=== PATIENT | male | born 1975 | race Caucasian/White ===

== ENCOUNTER 2017-12-28 12:41 | Emergency (ER) | payer SELFPAY ==
[~2017-12-28] VITALS: Ht 171.4 cm; Wt 72.7 kg
[2017-12-28 12:56] VITALS: BP 124/92
[2017-12-28] MEDS ORDERED: GABA-532 PO (13:02)
[2017-12-28] MEDS ORDERED: CHLO25CA10 PO (13:02)
== END 2017-12-28 13:31 | disposition home or self-care (01) ==
LOC: ER 12:41
DX: F10.220 Alcohol dependence with intoxication, uncomplicated (principal); F17.210 Nicotine dependence, cigarettes, uncomplicated; Z79.899 Other long term (current) drug therapy
CPT/HCPCS: 99283

== ENCOUNTER 2020-07-13 16:53 | Emergency (ER) | payer MEDICAID ==
[~2020-07-13] VITALS: Ht 175.3 cm; Wt 90.0 kg
[~2020-07-13 16:53] MED LIST: CHLO25CA10 PO; GABA-532 PO
[2020-07-13 20:46] VITALS: BP 136/94
== END 2020-07-13 20:48 | disposition home or self-care (01) ==
LOC: ER 16:53
DX: F10.120 Alcohol abuse with intoxication, uncomplicated (principal); R00.0 Tachycardia, unspecified; Z79.899 Other long term (current) drug therapy
CPT/HCPCS: 99281

== ENCOUNTER 2020-07-26 03:40 | Inpatient (IN) | payer MEDICAID ==
[~2020-07-26] VITALS: Ht 170.2 cm; Wt 84.5 kg
[2020-07-26] VITALS (36 sets, daily range): BP systolic 107–157; BP diastolic 77–107
[2020-07-26] MEDS ORDERED: ALBU8.5H8 INH (04:11)
[2020-07-26] MEDS ORDERED: morphine 10mg/ml inj. IV ONE (04:15)
[2020-07-26] MEDS ORDERED: iohexol 350MG/ML 100ml bottle IV ONE (04:16)
[2020-07-26] MEDS ORDERED: iohexol 350 MG/ML 50ML vial IV ONE (04:17)
[2020-07-26 04:20] LABS: ALBUMIN 2.9 G/DL (3.4-5.0); ANION GAP 12 (8-16); BLOOD UREA NITROGEN 7 MG/DL (7-18); BUN/CREATININE RATIO 8.5 (5.4-32.0); CALCIUM 7.7 MG/DL (8.5-10.1); CHLORIDE 101 MMOL/L (99-107); CREATININE 0.82 MG/DL (0.60-1.10); GLUCOSE 155 MG/DL (70-104); POTASSIUM 3.2 MMOL/L (3.5-5.1); SODIUM 137 MMOL/L (135-145); TOTAL CARBON DIOXIDE 24.1 MMOL/L (24-32); eGFR > 90 ML/MIN
--- NOTE | 2020-07-26 04:24 | NUR ---
PTS FOOT IS PALER THAN RIGHT, AND MORESO NOW THAN WHEN HE GOT HERE, DR SARGENT AWARE.
--- NOTE | 2020-07-26 04:24 | NUR ---
PT GOING TO CT WITH NURSE.
[2020-07-26 04:30] LABS: BASOPHILS % (AUTO) 0.2 % (0-1); EOSINOPHILS % (AUTO) 0.2 % (0-6); HEMATOCRIT 44.7 % (42.0-52.0); HEMOGLOBIN 15.6 g/dl (14.0-17.9); LYMPHOCYTES # (AUTO) 4.4 X10'3 (1.1-4.8); LYMPHOCYTES % (AUTO) 47.3 % (21-51); MEAN CORPUSCULAR HEMOGLOBIN 33.1 PG (27.0-31.0); MEAN CORPUSCULAR HGB CONC 34.8 g/dL (33.0-36.5); MEAN CORPUSCULAR VOLUME 95.1 FL (78-98); MEAN PLATELET VOLUME 7.6 FL (7.4-10.4); MONOCYTES % (AUTO) 10.2 % (2-12); NEUTROPHILS # (AUTO) 3.9 X10'3 (1.8-7.7); NEUTROPHILS % (AUTO) 42.1 % (42-75); PLATELET COUNT 106 X10'3 (140-440); RED CELL DISTRIBUTION WIDTH 15.2 % (11.5-14.5); WHITE BLOOD COUNT 9.3 X10'3 (4.5-11.0)
[2020-07-26] MEDS ORDERED: heparin 10,000 units/1 ML INJ IV ONE (04:50)
[2020-07-26] MEDS ORDERED: heparin 10,000 units/1 ML INJ IV PRN ×2 (04:50→10:00)
[2020-07-26] MEDS ORDERED: heparin 25,000 UNIT/250ml bag 250 ML IV SCH (04:50)
--- NOTE | 2020-07-26 05:02 | NUR ---
was at BS to explain to him his diagnosis. Pt was educated on heparin. Heparin started.
[2020-07-26] MEDS ORDERED: fentaNYL/PF 50MCG/1 ML 2ML syringe IV ONE (05:05)
--- NOTE | 2020-07-26 05:08 | NUR ---
SURGERY JUST CALLED, T.O. ECHO STAT.
--- NOTE | 2020-07-26 05:35 | NUR ---
clipped hairs, ultrasound at BS
[2020-07-26] MEDS ORDERED: acetaminophen 325mg tablet PO PRN ×2 (05:45)
[2020-07-26] MEDS ORDERED: thiamine 100mg/ml 2ml inj. IV ONE (05:45)
[2020-07-26] MEDS ORDERED: acetaminophen 650mg rectal suppository RC PRN (05:45)
[2020-07-26] MEDS ORDERED: dextrose 50%-water 50ml dispensing syringe IV PRN (05:45)
[2020-07-26] MEDS ORDERED: ipratropium/albuterol 3ml nebule NEB PRN (05:45)
[2020-07-26] MEDS ORDERED: potassium Cl 40MEQ/1/2NS 520ml 520 ML IV PRN ×2 (05:45)
[2020-07-26] MEDS ORDERED: morphine 2 MG/ML inj. syringe IV PRN ×2 (05:45→12:40)
[2020-07-26] MEDS ORDERED: potassium Cl 20 mEq SR tablet PO PRN (05:45)
[2020-07-26] MEDS ORDERED: ondansetron/PF 4mg/2ml inj IV PRN ×2 (05:45→12:40)
[2020-07-26] MEDS ORDERED: heparin 1,000 UNITS/NS 500ml 500 ML ONE (06:04)
[2020-07-26] MEDS ORDERED: LIDOcaine 1%/PF 5ML 10 MG/ML VIAL ONE (06:04)
[2020-07-26] MEDS ORDERED: fentaNYL/PF 50MCG/1 ML 2ML syringe ONE ×2 (06:04→06:24)
[2020-07-26] MEDS ORDERED: iohexol 300mg/ml 100ml inj. ONE (06:04)
[2020-07-26] MEDS ORDERED: midazolam 2 mg/2 ml injection ONE ×4 (06:04→12:20)
[2020-07-26] MEDS: heparin 1,000 UNITS/NS 500ml 500 ML IV SCH ×4 (06:10→18:40)
[2020-07-26 06:23] LABS: ALANINE AMINOTRANSFERASE 83 U/L (12-78); ALBUMIN/GLOBULIN RATIO 0.7 (1.1-1.5); ALKALINE PHOSPHATASE 143 IU/L (46-116); AMYLASE 140 U/L (25-115); ASPARTATE AMINO TRANSFERASE 130 U/L (10-37); BILIRUBIN,DIRECT 0.2 MG/DL (0-0.3); BILIRUBIN,TOTAL 0.5 MG/DL (0.1-1.0); LIPASE 149 U/L (73-393); MAGNESIUM 1.8 MG/DL (1.5-2.4); PHOSPHORUS 3.6 MG/DL (2.3-4.5); TOTAL PROTEIN 6.8 G/DL (6.4-8.2)
[2020-07-26] MEDS: K, MAG and/or Phos replacement - Verify level? MC SCH (08:00)
[2020-07-26] MEDS: folic acid 1mg tablet PO SCH (08:00)
[2020-07-26] MEDS: pantoprazole 40 MG vial IV SCH (08:00)
[2020-07-26] MEDS: multivitamins, therapeutics tablet PO SCH (08:00)
[2020-07-26] MEDS: docusate sod 100mg capsule PO SCH ×2 (08:00→20:00)
[2020-07-26] MEDS: thiamine 100mg tablet PO SCH (08:00)
[2020-07-26] MEDS: morphine 4 MG/ML inj SYRINge IV PRN ×2 (08:29→17:02)
[2020-07-26] MEDS: tPA-cathflo 2mg/2ml IV flush 4 MG in normal saline 100ml IV soln 100 ML ICATH SCH ×3 (08:30→21:54)
[2020-07-26] MEDS: normal saline 1000ml 1,000 ML IV SCH ×2 (08:30→15:35)
[2020-07-26] MEDS: LORazepam 2 mg/ml vial IV PRN ×5 (09:49→23:09)
[2020-07-26] MEDS: heparin 25,000 UNIT/250ml bag 250 ML IV SCH (10:00)
[2020-07-26] MEDS ORDERED: heparin 10,000 units/1 ML INJ ONE (11:47)
[2020-07-26] MEDS ORDERED: iohexol 300 MG/1 ML 50ml polymer ONE (11:47)
[2020-07-26] MEDS ORDERED: sevoflurane 250ml liquid IH ONE (12:20)
[2020-07-26] MEDS ORDERED: cefazolin/dext.iso 2,000MG/50 ML BAG IV ONE (12:20)
[2020-07-26] MEDS ORDERED: fentaNYL /PF 50mcg/ml 5ml ampule ONE (12:21)
[2020-07-26 12:22] LABS: HEMATOCRIT 44.8 % (42.0-52.0); HEMOGLOBIN 15.5 g/dl (14.0-17.9); MEAN CORPUSCULAR HGB CONC 34.7 g/dL (33.0-36.5); MEAN CORPUSCULAR VOLUME 95.2 FL (78-98); MEAN PLATELET VOLUME 7.5 FL (7.4-10.4); PLATELET COUNT 82 X10'3 (140-440); RED BLOOD COUNT 4.71 X10'6 (4.70-6.10); RED CELL DISTRIBUTION WIDTH 15.3 % (11.5-14.5); WHITE BLOOD COUNT 8.5 X10'3 (4.5-11.0)
--- NOTE | 2020-07-26 12:27 | NUR ---
Patient arrived on unit at approximately 0800 from IR. Patient came in with complaints of left lower leg pain with numbness. No blood flow from approximately knee down. TPA and Heparin infusing. Extremity cold and cyanotic. No pulse detectable with doppler. Medicated with 4mg Morphine for complaint of pain. 2mg Ativan given for visible tremors. Patient taken to OR at approximately 1215 for left leg thrombectomy/faciotomy/angio. Will continue to monitor once back on unit.
[2020-07-26] MEDS ORDERED: meperidine/PF 25mg/ml syringe IV PRN ×3 (12:40)
[2020-07-26] MEDS ORDERED: morphine 4 MG/ML inj SYRINge IV PRN (12:40)
[2020-07-26] MEDS ORDERED: ringers solution, lacted 1,000 ML IV SCH (12:40)
[2020-07-26] MEDS ORDERED: proCHLORperazine 10 MG/2 ml inj IV PRN (12:40)
[2020-07-26] MEDS ORDERED: glycopyrrolate 0.2mg/ml inj ONE (14:23)
[2020-07-26] MEDS ORDERED: LIDOcaine 2% (20mg/ml) 5ml vial ONE (14:23)
[2020-07-26] MEDS ORDERED: rocuronium 10mg/ml inj IV ONE (14:23)
[2020-07-26] MEDS ORDERED: ondansetron/PF 4mg/2ml inj ONE (14:23)
[2020-07-26] MEDS ORDERED: meperidine/PF 25mg/ml syringe ONE (14:23)
[2020-07-26] MEDS ORDERED: propofol inj 20 ML IV ONE (14:23)
[2020-07-26] MEDS ORDERED: dexamethasone sod phosphate 4mg/ml inj. ONE (14:23)
[2020-07-26] MEDS ORDERED: neostigmine methylsulfate 1 MG/ML 10ml vial ONE (14:23)
[2020-07-26] MEDS: ceFAZolin/D5W- 1GM premix 50 ML IV SCH ×2 (15:35→23:17)
--- NOTE | 2020-07-26 15:59 | NUR ---
Patient returned from OR at approximately 1500. Wound vac in place to left groin at 75mmHg. Right sheath in place to right groin. IR to come remove. Left lower extremity dressing intact. Pulses to left lower extremity positive via doppler. Will continue to monitor.
[2020-07-26] MEDS: aspirin 81mg tablet.DR PO SCH (18:00)
[2020-07-26] MEDS: potassium Cl 20 mEq SR tablet PO PRN ×2 (19:15→23:17)
[2020-07-26 19:24] LABS: HEMATOCRIT 41.1 % (42.0-52.0); HEMOGLOBIN 14.1 g/dl (14.0-17.9); MEAN CORPUSCULAR HEMOGLOBIN 32.8 PG (27.0-31.0); MEAN CORPUSCULAR HGB CONC 34.3 g/dL (33.0-36.5); MEAN CORPUSCULAR VOLUME 95.7 FL (78-98); MEAN PLATELET VOLUME 7.9 FL (7.4-10.4); PLATELET COUNT 78 X10'3 (140-440); RED CELL DISTRIBUTION WIDTH 15.2 % (11.5-14.5); WHITE BLOOD COUNT 12.3 X10'3 (4.5-11.0)
[2020-07-26] MEDS: HYDROcodone/acetaminophen 10/325mg tab PO PRN (19:46)
--- NOTE | 2020-07-26 21:48 | NUR ---
Pt medicated w/ 2mg ativan for alcohol withdrawal symptoms, tremors noted, diaphoretic, and pt states he feels like he is withdrawaling. At beggining of assessment pt R groin site was CDI, pt was moving in bed, reminded pt of immobilization education. Assessed groin site, site was saturated and oozing blood. Fem stop applied, pulses remained palpable. Continuous assessment of groin site and CMS. Will continue to monitor.
[2020-07-27] VITALS (24 sets, daily range): BP systolic 102–125; BP diastolic 56–91
[2020-07-27] MEDS: LORazepam 2 mg/ml vial IV PRN ×4 (02:10→23:35)
[2020-07-27] MEDS: morphine 4 MG/ML inj SYRINge IV PRN (03:25)
[2020-07-27 03:34] LABS: BASOPHILS % (AUTO) 0.1 % (0-1); EOSINOPHILS % (AUTO) 0 % (0-6); HEMATOCRIT 38.8 % (42.0-52.0); HEMOGLOBIN 13.3 g/dl (14.0-17.9); LYMPHOCYTES # (AUTO) 0.8 X10'3 (1.1-4.8); MEAN CORPUSCULAR HEMOGLOBIN 33.1 PG (27.0-31.0); MEAN CORPUSCULAR HGB CONC 34.2 g/dL (33.0-36.5); MEAN CORPUSCULAR VOLUME 96.5 FL (78-98); MEAN PLATELET VOLUME 8.5 FL (7.4-10.4); MONOCYTES # (AUTO) 0.8 X10'3 (0-0.9); MONOCYTES % (AUTO) 8.5 % (2-12); NEUTROPHILS # (AUTO) 8.2 X10'3 (1.8-7.7); NEUTROPHILS % (AUTO) 83.4 % (42-75); PARTIAL THROMBOPLASTIN TIME 26 SECONDS (22-32); PLATELET COUNT 85 X10'3 (140-440); RED BLOOD COUNT 4.02 X10'6 (4.70-6.10); RED CELL DISTRIBUTION WIDTH 15.3 % (11.5-14.5); WHITE BLOOD COUNT 9.8 X10'3 (4.5-11.0)
[2020-07-27 03:48] LABS: ALANINE AMINOTRANSFERASE 176 U/L (12-78); ALBUMIN 2.2 G/DL (3.4-5.0); ALBUMIN/GLOBULIN RATIO 0.7 (1.1-1.5); ALKALINE PHOSPHATASE 115 IU/L (46-116); AMYLASE 63 U/L (25-115); ANION GAP 13 (8-16); BILIRUBIN,TOTAL 0.8 MG/DL (0.1-1.0); BLOOD UREA NITROGEN 8 MG/DL (7-18); BUN/CREATININE RATIO 9.5 (5.4-32.0); CALCIUM 6.4 MG/DL (8.5-10.1); CHLORIDE 103 MMOL/L (99-107); CREATININE 0.84 MG/DL (0.60-1.10); GLUCOSE 164 MG/DL (70-104); MAGNESIUM 1.7 MG/DL (1.5-2.4); PHOSPHORUS 3.6 MG/DL (2.3-4.5); POTASSIUM 4.2 MMOL/L (3.5-5.1); SODIUM 138 MMOL/L (135-145); TOTAL CARBON DIOXIDE 22.3 MMOL/L (24-32); TOTAL PROTEIN 5.3 G/DL (6.4-8.2); eGFR > 90 ML/MIN
[2020-07-27 03:52] LABS: ASPARTATE AMINO TRANSFERASE 1346 U/L (10-37)
[2020-07-27] MEDS: heparin 25,000 UNIT/250ml bag 250 ML IV SCH ×2 (05:14→19:49)
[2020-07-27] MEDS: tPA-cathflo 2mg/2ml IV flush 4 MG in normal saline 100ml IV soln 100 ML ICATH SCH (06:05)
[2020-07-27] MEDS: pantoprazole 40 MG vial IV SCH (07:51)
[2020-07-27] MEDS: normal saline 1000ml 1,000 ML IV SCH ×2 (07:52→19:50)
[2020-07-27] MEDS: folic acid 1mg tablet PO SCH (07:52)
[2020-07-27] MEDS: multivitamins, therapeutics tablet PO SCH (07:52)
[2020-07-27] MEDS: docusate sod 100mg capsule PO SCH ×2 (07:52→19:49)
[2020-07-27] MEDS: thiamine 100mg tablet PO SCH (07:52)
[2020-07-27] MEDS: aspirin 81mg tablet.DR PO SCH (07:52)
[2020-07-27] MEDS: K, MAG and/or Phos replacement - Verify level? MC SCH (07:53)
[2020-07-27] MEDS: nicotine 21mg patch - 24 hr TD SCH (10:52)
[2020-07-27 19:49] LABS: HEMATOCRIT 35.1 % (42.0-52.0); HEMOGLOBIN 12.2 g/dl (14.0-17.9); MEAN CORPUSCULAR HEMOGLOBIN 33.2 PG (27.0-31.0); MEAN CORPUSCULAR HGB CONC 34.7 g/dL (33.0-36.5); MEAN CORPUSCULAR VOLUME 95.7 FL (78-98); MEAN PLATELET VOLUME 9.3 FL (7.4-10.4); PLATELET COUNT 81 X10'3 (140-440); RED BLOOD COUNT 3.67 X10'6 (4.70-6.10); RED CELL DISTRIBUTION WIDTH 14.9 % (11.5-14.5); WHITE BLOOD COUNT 9.7 X10'3 (4.5-11.0)
[2020-07-27] MEDS: HYDROcodone/acetaminophen 10/325mg tab PO PRN (19:58)
[2020-07-28] VITALS (21 sets, daily range): BP systolic 102–131; BP diastolic 70–96
[2020-07-28] MEDS: morphine 4 MG/ML inj SYRINge IV PRN (04:01)
[2020-07-28] MEDS ORDERED: LORazepam 2 mg/ml vial IV PRN (05:45)
[2020-07-28] MEDS ORDERED: lactulose 20gm/30ml cup PO PRN (05:45)
[2020-07-28 06:04] LABS: BASOPHILS % (AUTO) 0.2 % (0-1); EOSINOPHILS % (AUTO) 0 % (0-6); HEMATOCRIT 32.7 % (42.0-52.0); HEMOGLOBIN 11.4 g/dl (14.0-17.9); LYMPHOCYTES # (AUTO) 1.7 X10'3 (1.1-4.8); LYMPHOCYTES % (AUTO) 18.6 % (21-51); MEAN CORPUSCULAR HEMOGLOBIN 33.4 PG (27.0-31.0); MEAN CORPUSCULAR HGB CONC 34.9 g/dL (33.0-36.5); MEAN CORPUSCULAR VOLUME 95.9 FL (78-98); MEAN PLATELET VOLUME 9.6 FL (7.4-10.4); MONOCYTES # (AUTO) 0.9 X10'3 (0-0.9); MONOCYTES % (AUTO) 9.4 % (2-12); NEUTROPHILS # (AUTO) 6.7 X10'3 (1.8-7.7); NEUTROPHILS % (AUTO) 71.8 % (42-75); PLATELET COUNT 90 X10'3 (140-440); RED BLOOD COUNT 3.41 X10'6 (4.70-6.10); RED CELL DISTRIBUTION WIDTH 14.9 % (11.5-14.5); WHITE BLOOD COUNT 9.3 X10'3 (4.5-11.0)
[2020-07-28 06:18] LABS: PARTIAL THROMBOPLASTIN TIME 22 SECONDS (22-32)
[2020-07-28 06:19] LABS: ALANINE AMINOTRANSFERASE 181 U/L (12-78); ALBUMIN 2.1 G/DL (3.4-5.0); ALBUMIN/GLOBULIN RATIO 0.6 (1.1-1.5); ALKALINE PHOSPHATASE 108 IU/L (46-116); AMYLASE 55 U/L (25-115); ANION GAP 7 (8-16); ASPARTATE AMINO TRANSFERASE 986 U/L (10-37); BILIRUBIN,TOTAL 0.8 MG/DL (0.1-1.0); BLOOD UREA NITROGEN 13 MG/DL (7-18); BUN/CREATININE RATIO 16.9 (5.4-32.0); CALCIUM 7.5 MG/DL (8.5-10.1); CHLORIDE 104 MMOL/L (99-107); CREATININE 0.77 MG/DL (0.60-1.10); GLUCOSE 113 MG/DL (70-104); MAGNESIUM 2.1 MG/DL (1.5-2.4); POTASSIUM 3.8 MMOL/L (3.5-5.1); SODIUM 138 MMOL/L (135-145); TOTAL CARBON DIOXIDE 27.2 MMOL/L (24-32); TOTAL PROTEIN 5.4 G/DL (6.4-8.2); eGFR > 90 ML/MIN
[2020-07-28 06:28] LABS: PHOSPHORUS 1.2 MG/DL (2.3-4.5)
[2020-07-28] MEDS: docusate sod 100mg capsule PO SCH ×2 (07:29→20:23)
[2020-07-28] MEDS: multivitamins, therapeutics tablet PO SCH (07:30)
[2020-07-28] MEDS: pantoprazole 40mg Tablet.DR PO SCH (07:30)
[2020-07-28] MEDS: aspirin 81mg tablet.DR PO SCH (07:30)
[2020-07-28] MEDS: thiamine 100mg tablet PO SCH (07:30)
[2020-07-28] MEDS: folic acid 1mg tablet PO SCH (07:30)
[2020-07-28] MEDS: nicotine 21mg patch - 24 hr TD SCH (07:31)
[2020-07-28] MEDS: K, MAG and/or Phos replacement - Verify level? MC SCH (08:00)
[2020-07-28] MEDS ORDERED: sodium phosphate inj. 15 MMOL in dextrose 5%-water 250 ML IV ONE (09:35)
--- NOTE | 2020-07-28 10:48 | NUR ---
Pt s/p embolectomy and 4 compartment fasciotomy L calf per EMR. Pt seen by CRISTINA for verbal high protein ed; pt is agreeable to lazaro OLSEN; notified. Addendum: 07/28/20 at [address] Amended: Links added.
[2020-07-28] MEDS: normal saline 1000ml 1,000 ML IV SCH (11:05)
[2020-07-28 12:45] LABS: HEMATOCRIT 32.3 % (42.0-52.0); HEMOGLOBIN 11.1 g/dl (14.0-17.9); MEAN CORPUSCULAR HEMOGLOBIN 33.4 PG (27.0-31.0); MEAN CORPUSCULAR HGB CONC 34.2 g/dL (33.0-36.5); MEAN CORPUSCULAR VOLUME 97.6 FL (78-98); MEAN PLATELET VOLUME 9.9 FL (7.4-10.4); PLATELET COUNT 89 X10'3 (140-440); RED BLOOD COUNT 3.31 X10'6 (4.70-6.10); RED CELL DISTRIBUTION WIDTH 14.8 % (11.5-14.5); WHITE BLOOD COUNT 9.8 X10'3 (4.5-11.0)
[2020-07-28] MEDS: LORazepam 1 MG tablet PO PRN ×4 (14:23→22:54)
[2020-07-28] MEDS ORDERED: JUVEN Smoothie Arginine/Glut./Ca2+Bmb (Juven 19.3pkt) 240ml cup PO SCH (17:30)
[2020-07-28 18:31] LABS: HEMATOCRIT 31.6 % (42.0-52.0); HEMOGLOBIN 11.2 g/dl (14.0-17.9); MEAN CORPUSCULAR HEMOGLOBIN 34.2 PG (27.0-31.0); MEAN CORPUSCULAR HGB CONC 35.5 g/dL (33.0-36.5); MEAN CORPUSCULAR VOLUME 96.2 FL (78-98); MEAN PLATELET VOLUME 9.8 FL (7.4-10.4); PLATELET COUNT 105 X10'3 (140-440); RED BLOOD COUNT 3.29 X10'6 (4.70-6.10); RED CELL DISTRIBUTION WIDTH 14.3 % (11.5-14.5); WHITE BLOOD COUNT 10.6 X10'3 (4.5-11.0)
[2020-07-28] MEDS: HYDROcodone/acetaminophen 10/325mg tab PO PRN (20:23)
--- NOTE | 2020-07-28 20:40 | NUR ---
Received report from CICU WILSON Luu. Pt. to follow shortly.
--- NOTE | 2020-07-28 20:52 | NUR ---
Report given and rec. by Estefany RACHEL nurse on PCU rm . Phos level low per AM nurse and MD aware. Not to treat secondary to patient beginning to eat and phos level should rebound to appropriate level. patient yu removed per order and patient ambulated to bed per two person assist. VVS..patient alert and oriented x4.
--- NOTE | 2020-07-28 20:52 | NUR ---
Patient arrived to floor at 2051. SbA to bed. 2 RN skin check completed with Jus Nair RN and following noted: bruising to right groin femoral insertion site. Dressing covering left calf. At this time unsure as to what is underneath. Jus RACHEL in agreement. and RN also will f/u with note about not replacing phosphorous today. Addendum: 07/29/20 at 0224 by Estefany Radford RN Actually correct time was 2099.
[2020-07-29] MEDS: normal saline 1000ml 1,000 ML IV SCH ×2 (00:25→13:57)
[2020-07-29] MEDS: LORazepam 1 MG tablet PO PRN ×5 (01:58→23:36)
[2020-07-29] MEDS: HYDROcodone/acetaminophen 10/325mg tab PO PRN ×5 (01:59→21:02)
[2020-07-29 02:05] VITALS: BP 115/75
[2020-07-29 06:18] LABS: BASOPHILS % (AUTO) 0.2 % (0-1); EOSINOPHILS % (AUTO) 0.4 % (0-6); HEMATOCRIT 25.9 % (42.0-52.0); LYMPHOCYTES % (AUTO) 28.2 % (21-51); MEAN CORPUSCULAR HEMOGLOBIN 33.7 PG (27.0-31.0); MEAN CORPUSCULAR HGB CONC 34.7 g/dL (33.0-36.5); MEAN PLATELET VOLUME 9.4 FL (7.4-10.4); MONOCYTES # (AUTO) 0.5 X10'3 (0-0.9); MONOCYTES % (AUTO) 7.5 % (2-12); NEUTROPHILS # (AUTO) 4.4 X10'3 (1.8-7.7); NEUTROPHILS % (AUTO) 63.7 % (42-75); PLATELET COUNT 91 X10'3 (140-440); RED BLOOD COUNT 2.67 X10'6 (4.70-6.10); RED CELL DISTRIBUTION WIDTH 14.1 % (11.5-14.5)
[2020-07-29 06:26] LABS: PARTIAL THROMBOPLASTIN TIME 22 SECONDS (22-32)
--- NOTE | 2020-07-29 06:30 | NUR ---
Problems reprioritized. Patient report given, questions answered & plan of care reviewed with So RACHEL.
[2020-07-29 06:32] LABS: ALANINE AMINOTRANSFERASE 194 U/L (12-78); ALBUMIN/GLOBULIN RATIO 0.6 (1.1-1.5); ALKALINE PHOSPHATASE 108 IU/L (46-116); AMYLASE 61 U/L (25-115); ANION GAP 4 (8-16); ASPARTATE AMINO TRANSFERASE 747 U/L (10-37); BILIRUBIN,TOTAL 0.8 MG/DL (0.1-1.0); BLOOD UREA NITROGEN 11 MG/DL (7-18); BUN/CREATININE RATIO 16.4 (5.4-32.0); CALCIUM 7.5 MG/DL (8.5-10.1); CHLORIDE 102 MMOL/L (99-107); CREATININE 0.67 MG/DL (0.60-1.10); GLUCOSE 89 MG/DL (70-104); MAGNESIUM 2.1 MG/DL (1.5-2.4); POTASSIUM 3.4 MMOL/L (3.5-5.1); SODIUM 134 MMOL/L (135-145); TOTAL CARBON DIOXIDE 28.3 MMOL/L (24-32); TOTAL PROTEIN 5.1 G/DL (6.4-8.2); eGFR > 90 ML/MIN
[2020-07-29 07:40] VITALS: BP 132/74
[2020-07-29] MEDS: folic acid 1mg tablet PO SCH (07:51)
[2020-07-29] MEDS: pantoprazole 40mg Tablet.DR PO SCH (07:51)
[2020-07-29] MEDS: docusate sod 100mg capsule PO SCH ×2 (07:51→19:15)
[2020-07-29] MEDS: thiamine 100mg tablet PO SCH (07:51)
[2020-07-29] MEDS: aspirin 81mg tablet.DR PO SCH (07:51)
[2020-07-29] MEDS: multivitamins, therapeutics tablet PO SCH (07:51)
[2020-07-29] MEDS: K, MAG and/or Phos replacement - Verify level? MC SCH (07:52)
[2020-07-29] MEDS: nicotine 21mg patch - 24 hr TD SCH (07:52)
[2020-07-29] MEDS: potassium Cl 20 mEq SR tablet PO PRN ×3 (07:57→21:01)
--- NOTE | 2020-07-29 08:22 | NUR ---
Patient pulled out one of his IV's. He stated that he will be leaving today no matter what. I discussed the importance of staying for his treatment and explained the need for the wound vac therapy. He said that he didn't care. Was able to convince him to stay until the DR rounds and is able to talk with him. medicated his 01/24 pain.
--- NOTE | 2020-07-29 12:10 | NUR ---
Rounded with Dr. Chun. He said to get a wound vac placed on the left lower leg as well so that the patient will be able to DC with the wound vacs. Notified knife setter of this plan.
[2020-07-29 12:14] VITALS: BP 122/73
[2020-07-29 16:09] VITALS: BP 137/83
[2020-07-29 18:00] VITALS: BP 118/61
--- NOTE | 2020-07-29 18:27 | NUR ---
Problems reprioritized. Patient report given, questions answered & plan of care reviewed with WILSON Hodges.
--- NOTE | 2020-07-29 19:04 | NUR ---
I have received report from Xiao RACHEL and had the opportunity to ask questions and assume patient care.
[2020-07-29] MEDS: apixaban 5mg tablet PO SCH (19:16)
[2020-07-29 22:00] VITALS: BP 135/85
[2020-07-30] MEDS: HYDROcodone/acetaminophen 10/325mg tab PO PRN ×5 (01:09→16:55)
[2020-07-30 01:29] VITALS: BP 135/85
[2020-07-30 02:00] VITALS: BP_SYST 128; BP_SYST 137; BP_DIAS 77; BP_DIAS 82
[2020-07-30] MEDS: LORazepam 1 MG tablet PO PRN (02:28)
[2020-07-30] MEDS: normal saline 1000ml 1,000 ML IV SCH (02:28)
[2020-07-30] MEDS ORDERED: LORazepam 1 MG tablet PO PRN (05:45)
[2020-07-30] MEDS ORDERED: LORazepam 2 mg/ml vial IV PRN (05:45)
[2020-07-30 06:00] VITALS: BP 118/71
--- NOTE | 2020-07-30 06:27 | NUR ---
Problems reprioritized. Patient report given, questions answered & plan of care reviewed with Jeri RACHEL.
--- NOTE | 2020-07-30 06:32 | NUR ---
Patient in room PCU 3024. I have received report from WILSON Hodges and had the opportunity to ask questions and assume patient care.
[2020-07-30 06:52] LABS: BASOPHILS % (AUTO) 0.5 % (0-1); EOSINOPHILS % (AUTO) 0.5 % (0-6); HEMATOCRIT 25.7 % (42.0-52.0); LYMPHOCYTES % (AUTO) 27.5 % (21-51); MEAN CORPUSCULAR HEMOGLOBIN 34.6 PG (27.0-31.0); MEAN CORPUSCULAR HGB CONC 35.1 g/dL (33.0-36.5); MEAN CORPUSCULAR VOLUME 98.5 FL (78-98); MONOCYTES # (AUTO) 0.7 X10'3 (0-0.9); MONOCYTES % (AUTO) 9.4 % (2-12); NEUTROPHILS # (AUTO) 4.4 X10'3 (1.8-7.7); NEUTROPHILS % (AUTO) 62.1 % (42-75); PLATELET COUNT 139 X10'3 (140-440); RED BLOOD COUNT 2.61 X10'6 (4.70-6.10); RED CELL DISTRIBUTION WIDTH 14.4 % (11.5-14.5); WHITE BLOOD COUNT 7.1 X10'3 (4.5-11.0)
[2020-07-30 07:03] LABS: PARTIAL THROMBOPLASTIN TIME 23 SECONDS (22-32)
[2020-07-30 07:04] LABS: ALANINE AMINOTRANSFERASE 233 U/L (12-78); ALBUMIN 2.3 G/DL (3.4-5.0); ALBUMIN/GLOBULIN RATIO 0.7 (1.1-1.5); ALKALINE PHOSPHATASE 113 IU/L (46-116); ANION GAP 7 (8-16); ASPARTATE AMINO TRANSFERASE 823 U/L (10-37); BILIRUBIN,TOTAL 0.8 MG/DL (0.1-1.0); BLOOD UREA NITROGEN 10 MG/DL (7-18); BUN/CREATININE RATIO 14.9 (5.4-32.0); CALCIUM 7.6 MG/DL (8.5-10.1); CHLORIDE 103 MMOL/L (99-107); CREATININE 0.67 MG/DL (0.60-1.10); GLUCOSE 97 MG/DL (70-104); MAGNESIUM 2.1 MG/DL (1.5-2.4); PHOSPHORUS 2.8 MG/DL (2.3-4.5); POTASSIUM 3.8 MMOL/L (3.5-5.1); SODIUM 137 MMOL/L (135-145); TOTAL PROTEIN 5.7 G/DL (6.4-8.2); eGFR > 90 ML/MIN
[2020-07-30] MEDS: docusate sod 100mg capsule PO SCH (08:00)
[2020-07-30] MEDS: K, MAG and/or Phos replacement - Verify level? MC SCH (08:00)
[2020-07-30] MEDS: nicotine 21mg patch - 24 hr TD SCH (08:17)
[2020-07-30] MEDS: multivitamins, therapeutics tablet PO SCH (08:17)
[2020-07-30] MEDS: thiamine 100mg tablet PO SCH (08:17)
[2020-07-30] MEDS: folic acid 1mg tablet PO SCH (08:17)
[2020-07-30] MEDS: pantoprazole 40mg Tablet.DR PO SCH (08:17)
[2020-07-30] MEDS: aspirin 81mg tablet.DR PO SCH (08:17)
[2020-07-30] MEDS: apixaban 5mg tablet PO SCH (08:17)
--- NOTE | 2020-07-30 10:17 | NUR ---
Eating well, 75-100 improved from 0% PO Intake. Pt is s/p left common femoral embolectomy, left common femoral endarterectomy with angioplasty, and left lower leg fasciotomy on 07/26; surgical wound present to left groin and left lateral lower leg with wound vac, WOC following. Pt has been seen by CRISTINA for verbal and written high protein education for wound healing. Pt agreed to Nhan with meals, pending approval by MD. Recommend: 1. Continue regular diet 2. Esbon nhan smoothie BIDBD 3. Routine bowel care 4. Weight per rx Addendum: 07/30/20 at [address] Amended: Links added.
[2020-07-30 11:00] VITALS: BP 124/73
[2020-07-30] MEDS ORDERED: JUVEN Smoothie Arginine/Glut./Ca2+Bmb (Juven 19.3pkt) 240ml cup PO SCH (12:30)
[2020-07-30] MEDS ORDERED: PANT40TA54 PO (14:09)
[2020-07-30] MEDS ORDERED: NICO-687 TD (14:09)
[2020-07-30] MEDS ORDERED: APIX5TAB3 PO (14:09)
[2020-07-30] MEDS ORDERED: ASPI-1071 PO (14:09)
[2020-07-30] MEDS ORDERED: HYDR-3972 PO (14:33)
[2020-07-30 15:00] VITALS: BP 103/62
--- NOTE | 2020-07-30 17:46 | NUR ---
Pt discharged to home at 1740, with all belongings, in private vehicle, accompanied by girlfriend. Discharge instructions and medications reviewed. Education provided regarding home wound vac care and changing of cannisters. Pt sent home with extra cannisters and wound vac dressing supplies. Pt discharged with triplicate for pain medication with instructions to fill at pharmacy of choice, and terry lloyd with instructions to present to pharmacy. Appointment made at wound care clinic for Tuesday08/01/20 at 0920, phone number provided. Pt instructed that he is responsible for making appointments after his first one on 08/01. Pt stated understanding and willingness to comply with all discharge instructions. IV DC'd, cannula intact. Pt escorted to front lobby via wheelchair by PCT.
[2020-08-06] MEDS ORDERED: apixaban 5mg tablet PO SCH (08:00)
== END 2020-07-30 17:40 | disposition home or self-care (01) | DRG 181 ==
LOC: ER 03:40 → ED HOLD 05:45 → CICU 2S 07:18 → PCU 3S 07-28 20:42
PROVIDERS: ADMIT Internal Medicine Critical Care Medicine; ATTEND Internal Medicine Critical Care Medicine
PROC: 04UL0JZ Supplement Left Femoral Artery with Synthetic Substitute, Open Approach (ICD-10-PCS; 2020-07-26)
PROC: 0KNT0ZZ Release Left Lower Leg Muscle, Open Approach (ICD-10-PCS; 2020-07-26)
PROC: 0KNT0ZZ Release Left Lower Leg Muscle, Open Approach (ICD-10-PCS; 2020-07-26)
PROC: 0KNT0ZZ Release Left Lower Leg Muscle, Open Approach (ICD-10-PCS; 2020-07-26)
PROC: 0KNT0ZZ Release Left Lower Leg Muscle, Open Approach (ICD-10-PCS; 2020-07-26)
PROC: 04CL0ZZ Extirpation of Matter from Left Femoral Artery, Open Approach (ICD-10-PCS; 2020-07-26)
PROC: 04CN0ZZ Extirpation of Matter from Left Popliteal Artery, Open Approach (ICD-10-PCS; principal; 2020-07-26 12:20)
DX: I82.412 Acute embolism and thrombosis of left femoral vein (principal); I82.432 Acute embolism and thrombosis of left popliteal vein; I99.8 Other disorder of circulatory system; J45.909 Unspecified asthma, uncomplicated; F17.200 Nicotine dependence, unspecified, uncomplicated; Z20.822 Contact with and (suspected) exposure to COVID-19; F12.90 Cannabis use, unspecified, uncomplicated; Z79.82 Long term (current) use of aspirin; Z79.899 Other long term (current) drug therapy; Z79.01 Long term (current) use of anticoagulants
CPT/HCPCS: 36246; 36415; 37211; 75635; 75710; 76937; 80048; 80053; 80076; 82150; 82948; 83690; 83735; 84100; 85025; 85027; 85347; 85384; 85610; 85730; 86885; 86900; 86901; 87635; 93005; 93306; 93308; 94760; 96374; 96375; 97116; 97161; 97530; 99152; 99153; 99285; A4618; A6258; A6446; A7000; C1729; C1751; C1757; C1758; C1768; C1769; C1894; C9113; C9803; G0378; J0690; J1100; J1644; J2001; J2060; J2175; J2250; J2270; J2405; J2704; J2710; J2997; J3010; J3490; J7030; J7040; J7060; J7120; Q9967

== ENCOUNTER 2020-07-31 23:58 | Emergency (ER) | payer MEDICAID ==
[~2020-07-31] VITALS: Ht 170.2 cm; Wt 77.3 kg
[~2020-07-31 23:58] MED LIST changes: +ALBU8.5H8 INH; +APIX5TAB3 PO; +ASPI-1071 PO; -CHLO25CA10 PO; -GABA-532 PO; +HYDR-3972 PO; +NICO-687 TD; +PANT40TA54 PO
[2020-08-01 01:08] VITALS: BP 135/87
--- NOTE | 2020-08-01 01:30 | NUR ---
Kiah daigle from surgical placed two hospital wound vacs on pt. Pt's wound vac full from home, no home canister refills in house. Diet ordered, pt has wound appointment at 930.
--- NOTE | 2020-08-01 07:59 | NUR ---
patient in the room sitting at the edge of the bed.No reported discomfort.We will monitor.
--- NOTE | 2020-08-01 08:17 | NUR ---
PT GIVEN BREAKFAST TRAY. WOUND VAC CANISTER FILLING. INSTRUCT PT TO NOTIFY RN WHEN THE ALARM GOES OFF AND WE WILL CHANGE IT.
== END 2020-08-01 08:49 | disposition home or self-care (01) ==
LOC: ER 23:59
DX: S81.802A Unspecified open wound, left lower leg, initial encounter (principal); J45.909 Unspecified asthma, uncomplicated; F17.200 Nicotine dependence, unspecified, uncomplicated; Z98.890 Other specified postprocedural states; Z86.69 Personal history of other diseases of the nervous system and sense organs; Z72.89 Other problems related to lifestyle; Z79.82 Long term (current) use of aspirin; Z79.899 Other long term (current) drug therapy; Y82.8 Other medical devices associated with adverse incidents; Y93.89 Activity, other specified; Y92.89 Other specified places as the place of occurrence of the external cause; Y99.8 Other external cause status
CPT/HCPCS: 99284

== ENCOUNTER 2020-08-01 10:47 | Emergency (ER) | payer MEDICAID ==
[~2020-08-01] VITALS: Ht 170.2 cm; Wt 79.5 kg
--- NOTE | 2020-08-01 11:11 | NUR ---
Called Aubrie in Wound Care regarding pt not being hooked up to the wound vac and there being copious serous drainage. She states that she will be up when she can to hook him back up.
[2020-08-01 12:42] LABS: BASOPHILS # (AUTO) 0.1 X10'3 (0-0.2); BASOPHILS % (AUTO) 0.5 % (0-1); EOSINOPHILS % (AUTO) 0.2 % (0-6); HEMATOCRIT 28.9 % (42.0-52.0); LYMPHOCYTES # (AUTO) 1.3 X10'3 (1.1-4.8); LYMPHOCYTES % (AUTO) 11.7 % (21-51); MEAN CORPUSCULAR HEMOGLOBIN 34.2 PG (27.0-31.0); MEAN CORPUSCULAR HGB CONC 34.7 g/dL (33.0-36.5); MEAN CORPUSCULAR VOLUME 98.5 FL (78-98); MEAN PLATELET VOLUME 7.9 FL (7.4-10.4); MONOCYTES # (AUTO) 1.5 X10'3 (0-0.9); MONOCYTES % (AUTO) 13.4 % (2-12); NEUTROPHILS # (AUTO) 8.5 X10'3 (1.8-7.7); NEUTROPHILS % (AUTO) 74.2 % (42-75); PLATELET COUNT 297 X10'3 (140-440); RED BLOOD COUNT 2.94 X10'6 (4.70-6.10); RED CELL DISTRIBUTION WIDTH 15.1 % (11.5-14.5); WHITE BLOOD COUNT 11.4 X10'3 (4.5-11.0)
--- NOTE | 2020-08-01 12:47 | NUR ---
Spoke with Aubrie in wound care. She states that she has too many pts down there and will be up when she can.
[2020-08-01 12:59] LABS: ALANINE AMINOTRANSFERASE 175 U/L (12-78); ALBUMIN 2.7 G/DL (3.4-5.0); ALBUMIN/GLOBULIN RATIO 0.7 (1.1-1.5); ALKALINE PHOSPHATASE 103 IU/L (46-116); ANION GAP 7 (8-16); ASPARTATE AMINO TRANSFERASE 294 U/L (10-37); BLOOD UREA NITROGEN 14 MG/DL (7-18); BUN/CREATININE RATIO 22.2 (5.4-32.0); CALCIUM 8.6 MG/DL (8.5-10.1); CHLORIDE 102 MMOL/L (99-107); CREATININE 0.63 MG/DL (0.60-1.10); GLUCOSE 99 MG/DL (70-104); POTASSIUM 3.8 MMOL/L (3.5-5.1); SODIUM 136 MMOL/L (135-145); TOTAL PROTEIN 6.5 G/DL (6.4-8.2); eGFR > 90 ML/MIN
[2020-08-01 13:11] LABS: TOTAL CELLS COUNTED 100
[2020-08-01 13:12] LABS: ANISOCYTOSIS 1+; PLATELET ESTIMATE NORMAL; POLYCHROMASIA 2+; TOXIC GRANULATION 1+
--- NOTE | 2020-08-01 13:49 | NUR ---
Spoke with Aubrie in Wound Care. She asked if we could take the pt back down on the gurney and they will give us our gurney back.
[2020-08-01 13:58] VITALS: BP 110/75
== END 2020-08-01 14:02 | disposition home or self-care (01) ==
LOC: ER 10:48
DX: S81.802A Unspecified open wound, left lower leg, initial encounter (principal); F41.0 Panic disorder [episodic paroxysmal anxiety]; J45.909 Unspecified asthma, uncomplicated; Z86.69 Personal history of other diseases of the nervous system and sense organs; Z98.890 Other specified postprocedural states; Z72.89 Other problems related to lifestyle; Z79.82 Long term (current) use of aspirin; Z79.899 Other long term (current) drug therapy; X58.XXXA Exposure to other specified factors, initial encounter; Y93.89 Activity, other specified; Y92.89 Other specified places as the place of occurrence of the external cause; Y99.8 Other external cause status
CPT/HCPCS: 36415; 80053; 85007; 85025; 93005; 93971; 99285

== ENCOUNTER 2020-08-03 03:16 | Emergency (ER) | payer MEDICAID ==
[~2020-08-03] VITALS: Ht 170.2 cm; Wt 78.4 kg
[2020-08-03 03:31] VITALS: BP 104/61
== END 2020-08-03 05:57 | disposition home or self-care (01) ==
LOC: ER 03:16
DX: T81.89XA Other complications of procedures, not elsewhere classified, initial encounter (principal); J45.909 Unspecified asthma, uncomplicated; Z86.61 Personal history of infections of the central nervous system; Z72.89 Other problems related to lifestyle; Z79.82 Long term (current) use of aspirin; Z79.899 Other long term (current) drug therapy; Y92.89 Other specified places as the place of occurrence of the external cause; Y84.8 Other medical procedures as the cause of abnormal reaction of the patient, or of later complication, without mention of misadventure at the time of the procedure; Y82.8 Other medical devices associated with adverse incidents
CPT/HCPCS: 99281

== ENCOUNTER 2020-09-06 08:49 | Inpatient (IN) | payer MEDICAID ==
[~2020-09-06] VITALS: Ht 170.2 cm; Wt 87.9 kg
[2020-09-06] MEDS ORDERED: piperacillin/tazo 3.375gm/50ml 50 ML IV ONE (10:35)
[2020-09-06] MEDS ORDERED: vancomycin/NS 1 GM ADD-VANTAGE 250 ML IV ONE (10:35)
[2020-09-06] MEDS ORDERED: normal saline 1000ML IV soln IV ONE (10:35)
[2020-09-06 10:41] LABS: CLARITY,URINE CLEAR (Clear); COLOR,URINE YELLOW (Yellow); GLUCOSE, URINE NEGATIVE (Neg); KETONES,URINE NEGATIVE (Neg); LEUKOCYTE ESTERASE ,URINE NEGATIVE (Neg); NITRITES, URINE NEGATIVE (Neg); OCCULT BLOOD,URINE NEGATIVE (Neg); PH,URINE 6.5 (4.8-8.0); PROTEIN,URINE NEGATIVE (Neg); UROBILINOGEN,URINE 0.2 E.U/dL (0.2-1.0)
[2020-09-06 10:43] LABS: UA COLLECTION TYPE CLN CATCH MIDSTREAM
[2020-09-06 10:51] LABS: BASOPHILS # (AUTO) 0.1 X10'3 (0-0.2); BASOPHILS % (AUTO) 0.6 % (0-1); EOSINOPHILS # (AUTO) 0.1 X10'3 (0-0.9); EOSINOPHILS % (AUTO) 0.8 % (0-6); HEMATOCRIT 29.7 % (42.0-52.0); HEMOGLOBIN 9.8 g/dl (14.0-17.9); LYMPHOCYTES # (AUTO) 2.1 X10'3 (1.1-4.8); LYMPHOCYTES % (AUTO) 16.2 % (21-51); MEAN CORPUSCULAR HEMOGLOBIN 30.2 PG (27.0-31.0); MEAN CORPUSCULAR HGB CONC 33.1 g/dL (33.0-36.5); MEAN CORPUSCULAR VOLUME 91.2 FL (78-98); MEAN PLATELET VOLUME 7.9 FL (7.4-10.4); MONOCYTES # (AUTO) 1.2 X10'3 (0-0.9); MONOCYTES % (AUTO) 9.8 % (2-12); NEUTROPHILS # (AUTO) 9.2 X10'3 (1.8-7.7); NEUTROPHILS % (AUTO) 72.6 % (42-75); PLATELET COUNT 452 X10'3 (140-440); RED BLOOD COUNT 3.25 X10'6 (4.70-6.10); RED CELL DISTRIBUTION WIDTH 16.5 % (11.5-14.5); WHITE BLOOD COUNT 12.7 X10'3 (4.5-11.0)
[2020-09-06 11:07] LABS: ALANINE AMINOTRANSFERASE 23 U/L (12-78); ALBUMIN 2.5 G/DL (3.4-5.0); ALBUMIN/GLOBULIN RATIO 0.6 (1.1-1.5); ALKALINE PHOSPHATASE 112 IU/L (46-116); ANION GAP 9 (8-16); ASPARTATE AMINO TRANSFERASE 22 U/L (10-37); BILIRUBIN,TOTAL 0.4 MG/DL (0.1-1.0); BLOOD UREA NITROGEN 5 MG/DL (7-18); BUN/CREATININE RATIO 7.7 (5.4-32.0); CHLORIDE 97 MMOL/L (99-107); CREATININE 0.65 MG/DL (0.60-1.10); GLUCOSE 104 MG/DL (70-104); POTASSIUM 3.4 MMOL/L (3.5-5.1); SODIUM 134 MMOL/L (135-145); TOTAL CARBON DIOXIDE 28.4 MMOL/L (24-32); TOTAL PROTEIN 6.9 G/DL (6.4-8.2); eGFR > 90 ML/MIN
[2020-09-06] MEDS: normal saline 1000ml 1,000 ML IV SCH ×2 (11:20→21:20)
[2020-09-06] MEDS ORDERED: potassium Cl 20 mEq SR tablet PO PRN (11:20)
[2020-09-06] MEDS ORDERED: magnesium 2GM in 50ml NS 50 ML IV PRN (11:20)
[2020-09-06] MEDS ORDERED: acetaminophen 325mg tablet PO PRN (11:20)
[2020-09-06] MEDS ORDERED: magnesium Cl slow-release 64mg tablet PO PRN (11:20)
[2020-09-06] MEDS ORDERED: potassium Cl 40MEQ/1/2NS 520ml 520 ML IV PRN ×2 (11:20)
[2020-09-06] MEDS ORDERED: HYDROcodone/acetaminophen 10/325mg tab PO PRN (11:20)
[2020-09-06] MEDS ORDERED: morphine 2 MG/ML inj. syringe IV PRN ×2 (11:20)
[2020-09-06] MEDS ORDERED: LORazepam 2 mg/ml vial IV PRN (11:20)
[2020-09-06] MEDS ORDERED: magnesium 4gm in 100ml NS 100 ML IV PRN (11:20)
[2020-09-06] MEDS ORDERED: LORazepam 1 MG tablet PO PRN (11:20)
[2020-09-06] MEDS ORDERED: ondansetron/PF 4mg/2ml inj IV PRN (11:20)
--- NOTE | 2020-09-06 11:22 | NUR ---
ultrasound at bedside.
[2020-09-06] MEDS ORDERED: PANT40TA54 PO (11:48)
[2020-09-06] MEDS ORDERED: FURO40TA4 PO (11:48)
[2020-09-06] MEDS ORDERED: ASPI-611 PO (11:48)
[2020-09-06] MEDS ORDERED: NICO-687 TOP (11:48)
[2020-09-06] MEDS ORDERED: BUPR1FIL5 SL (11:48)
[2020-09-06] MEDS: vancomycin/NS 1 GM ADD-VANTAGE 250 ML IV SCH (12:03)
--- NOTE | 2020-09-06 12:18 | NUR ---
Patient in room ED 6. I have received report from J Luis RACHEL and had the opportunity to ask questions and awaiting patients arrival.
[2020-09-06 12:30] VITALS: BP 120/71
[2020-09-06 12:50] LABS: % IRON SATURATION 5 % (11-46); IRON 8 UG/DL (53-167); TOTAL IRON BINDING CAPACITY 176 UG/DL (259-388)
--- NOTE | 2020-09-06 13:48 | NUR ---
PAGER ID: [phone] MESSAGE: Addie med/surg [id number]. Pt: Bony. Rm: [id number]-A. Pt requesting Suboxone 4mg. states that's the only pain med he takes TID. can you pls address his med rec? thanks
[2020-09-06] MEDS ORDERED: ALBUTEROL INHALER 1 PUFF/90 MCG INHALER IH PRN (13:50)
[2020-09-06] MEDS ORDERED: albuterol 2.5 MG/3 ML nebule NEB PRN (15:25)
[2020-09-06] MEDS: potassium Cl 20 mEq SR tablet PO PRN ×2 (16:12→20:09)
--- NOTE | 2020-09-06 18:05 | NUR ---
Patient in room RITO 349. I have received report from Stacie RACHEL and had the opportunity to ask questions and assume patient care.
--- NOTE | 2020-09-06 18:18 | NUR ---
Problems reprioritized. Patient report given, questions answered & plan of care reviewed with Elisa Villarreal.
[2020-09-06 20:00] VITALS: BP 111/61
[2020-09-06] MEDS: K and/or MAG REPLACEMENT MC SCH (20:00)
[2020-09-06] MEDS ORDERED: heparin, porcine 5000 units/ml vial SQ SCH (20:00)
[2020-09-06] MEDS: apixaban 5mg tablet PO SCH (20:09)
[2020-09-06] MEDS: docusate sod 100mg capsule PO SCH (20:09)
[2020-09-06] MEDS: buprenorphine/naloxone 2-0.5mg sublingual tablet SL SCH (20:40)
[2020-09-06] MEDS ORDERED: temazepam 15mg capsule PO PRN (21:00)
[2020-09-07] VITALS: BP 122/64
[2020-09-07 06:13] LABS: BASOPHILS % (AUTO) 0.5 % (0-1); EOSINOPHILS # (AUTO) 0.2 X10'3 (0-0.9); EOSINOPHILS % (AUTO) 1.9 % (0-6); HEMATOCRIT 26.4 % (42.0-52.0); HEMOGLOBIN 9.1 g/dl (14.0-17.9); LYMPHOCYTES # (AUTO) 2.5 X10'3 (1.1-4.8); LYMPHOCYTES % (AUTO) 24.4 % (21-51); MEAN CORPUSCULAR HEMOGLOBIN 31.5 PG (27.0-31.0); MEAN CORPUSCULAR HGB CONC 34.4 g/dL (33.0-36.5); MEAN CORPUSCULAR VOLUME 91.4 FL (78-98); MEAN PLATELET VOLUME 7.4 FL (7.4-10.4); MONOCYTES # (AUTO) 1.3 X10'3 (0-0.9); MONOCYTES % (AUTO) 12.9 % (2-12); NEUTROPHILS # (AUTO) 6.2 X10'3 (1.8-7.7); NEUTROPHILS % (AUTO) 60.3 % (42-75); PLATELET COUNT 435 X10'3 (140-440); RED BLOOD COUNT 2.89 X10'6 (4.70-6.10); RED CELL DISTRIBUTION WIDTH 16.3 % (11.5-14.5); WHITE BLOOD COUNT 10.4 X10'3 (4.5-11.0)
--- NOTE | 2020-09-07 06:26 | NUR ---
Problems reprioritized. Patient report given, questions answered & plan of care reviewed with Vishnu RN with Mihaela ROCK.
[2020-09-07 06:40] LABS: ALANINE AMINOTRANSFERASE 17 U/L (12-78); ALBUMIN/GLOBULIN RATIO 0.5 (1.1-1.5); ALKALINE PHOSPHATASE 86 IU/L (46-116); ANION GAP 8 (8-16); ASPARTATE AMINO TRANSFERASE 17 U/L (10-37); BILIRUBIN,TOTAL 0.3 MG/DL (0.1-1.0); BLOOD UREA NITROGEN 4 MG/DL (7-18); BUN/CREATININE RATIO 6.7 (5.4-32.0); CALCIUM 8.6 MG/DL (8.5-10.1); CHLORIDE 105 MMOL/L (99-107); GLUCOSE 92 MG/DL (70-104); MAGNESIUM 2.1 MG/DL (1.5-2.4); SODIUM 141 MMOL/L (135-145); TOTAL CARBON DIOXIDE 27.9 MMOL/L (24-32); TOTAL PROTEIN 5.8 G/DL (6.4-8.2); eGFR > 90 ML/MIN
--- NOTE | 2020-09-07 06:47 | NUR ---
Patient in room RITO 349. I have received report from Cherelle RACHEL and had the opportunity to ask questions and assume patient care.
[2020-09-07] MEDS: docusate sod 100mg capsule PO SCH ×2 (07:37→20:14)
[2020-09-07] MEDS: apixaban 5mg tablet PO SCH ×2 (07:37→20:14)
[2020-09-07] MEDS: aspirin 81mg tablet.DR PO SCH (07:38)
[2020-09-07] MEDS: pantoprazole 40mg Tablet.DR PO SCH (07:38)
[2020-09-07] MEDS: nicotine 21mg patch - 24 hr TD SCH (07:38)
[2020-09-07] MEDS: buprenorphine/naloxone 2-0.5mg sublingual tablet SL SCH ×3 (07:59→20:14)
[2020-09-07 08:00] VITALS: BP 132/77
[2020-09-07] MEDS: K and/or MAG REPLACEMENT MC SCH ×2 (08:00→20:00)
[2020-09-07] MEDS: normal saline 1000ml 1,000 ML IV SCH ×3 (09:03→20:14)
[2020-09-07 10:00] LABS: OCCULT BLOOD STOOL NEGATIVE (Neg)
[2020-09-07 12:01] VITALS: BP 122/76
[2020-09-07] MEDS: vancomycin/NS 1 GM ADD-VANTAGE 250 ML IV SCH (12:14)
[2020-09-07] MEDS: acetaminophen 325mg tablet PO PRN ×2 (16:55→23:22)
--- NOTE | 2020-09-07 17:26 | NUR ---
Student documentation: I have reviewed and agree with all interventions, assessments performed and documented by Mihaela ROCK.
--- NOTE | 2020-09-07 18:22 | NUR ---
Problems reprioritized. Patient report given, questions answered & plan of care reviewed with RAYMOND RACHEL.
--- NOTE | 2020-09-07 18:32 | NUR ---
Patient in room RITO 349. I have received report from WILSON Braxton and had the opportunity to ask questions and assume patient care.
[2020-09-07 19:26] VITALS: BP 160/91
[2020-09-07] MEDS: lactobacillus rhamnosus 10,000 MMU CELLS/CAPSULE PO SCH (20:14)
--- NOTE | 2020-09-07 23:03 | NUR ---
Pt utilized call light to bring resource nurse into room. Once resource nurse was in the room she notified the assigned nurse that the patient was bleeding at one of his wound sites. When the assigned nurse came into room she observed to be blood pooling at the left groin site. When all dressings were immediately removed, blood at the old surgical site began spurting outwards. Direct pressure was held on surgical site for approx 10 mins by charge nurse. scallop raker surgical MD Gore was notified. ordered that direct pressure remain on wound for at least 20 mins, and if site is still spurting out blood, surgery would be necessary. Assigned nurse reassessed surgical site and found that bleeding was controlled. MD Gore was notified of controlled bleeding. Pressure wound dressing applied to left groin surgical site. directed nurse to call back and hold pressure if bleeding became active again. Very close monitoring will be done on the pt's surgical site.
[2020-09-07 23:56] VITALS: BP 145/85
[2020-09-08] VITALS (18 sets, daily range): BP systolic 86–179; BP diastolic 44–93
[2020-09-08] MEDS: normal saline 1000ml 1,000 ML IV SCH ×2 (06:01→21:25)
[2020-09-08 06:05] LABS: HEMOGLOBIN 9.4 g/dl (14.0-17.9); LYMPHOCYTES # (AUTO) 1.4 X10'3 (1.1-4.8); MEAN PLATELET VOLUME 7.3 FL (7.4-10.4); MONOCYTES # (AUTO) 0.8 X10'3 (0-0.9); RED BLOOD COUNT 3.14 X10'6 (4.70-6.10); RED CELL DISTRIBUTION WIDTH 16.5 % (11.5-14.5)
[2020-09-08 06:08] LABS: BASOPHILS # (AUTO) 0.1 X10'3 (0-0.2); EOSINOPHILS % (AUTO) 0.3 % (0-6); HEMATOCRIT 28.6 % (42.0-52.0); LYMPHOCYTES % (AUTO) 9.4 % (21-51); MEAN CORPUSCULAR HEMOGLOBIN 30.1 PG (27.0-31.0); MEAN CORPUSCULAR VOLUME 91.2 FL (78-98); MONOCYTES % (AUTO) 5.2 % (2-12); NEUTROPHILS # (AUTO) 12.5 X10'3 (1.8-7.7); NEUTROPHILS % (AUTO) 84.1 % (42-75); PLATELET COUNT 492 X10'3 (140-440); WHITE BLOOD COUNT 14.8 X10'3 (4.5-11.0)
--- NOTE | 2020-09-08 06:20 | NUR ---
Problems reprioritized. Patient report given, questions answered & plan of care reviewed with WILSON Braxton. Pressure wound dressing remained CDI throughout the night.
[2020-09-08 06:26] LABS: ALANINE AMINOTRANSFERASE 14 U/L (12-78); ALBUMIN 2.2 G/DL (3.4-5.0); ALBUMIN/GLOBULIN RATIO 0.5 (1.1-1.5); ALKALINE PHOSPHATASE 91 IU/L (46-116); ANION GAP 13 (8-16); ASPARTATE AMINO TRANSFERASE 17 U/L (10-37); BILIRUBIN,TOTAL 0.5 MG/DL (0.1-1.0); BLOOD UREA NITROGEN 4 MG/DL (7-18); BUN/CREATININE RATIO 6.5 (5.4-32.0); CALCIUM 8.3 MG/DL (8.5-10.1); CHLORIDE 100 MMOL/L (99-107); CREATININE 0.62 MG/DL (0.60-1.10); GLUCOSE 97 MG/DL (70-104); MAGNESIUM 1.8 MG/DL (1.5-2.4); POTASSIUM 3.9 MMOL/L (3.5-5.1); SODIUM 137 MMOL/L (135-145); TOTAL PROTEIN 6.4 G/DL (6.4-8.2); eGFR > 90 ML/MIN
--- NOTE | 2020-09-08 06:55 | NUR ---
Patient in room RITO 349. I have received report from Rufina RACHEL and had the opportunity to ask questions and assume patient care.
[2020-09-08] MEDS: K and/or MAG REPLACEMENT MC SCH ×2 (08:00→20:00)
[2020-09-08] MEDS: nicotine 21mg patch - 24 hr TD SCH (08:16)
[2020-09-08] MEDS: docusate sod 100mg capsule PO SCH (08:16)
[2020-09-08] MEDS: aspirin 81mg tablet.DR PO SCH (08:16)
[2020-09-08] MEDS: pantoprazole 40mg Tablet.DR PO SCH (08:17)
[2020-09-08] MEDS: apixaban 5mg tablet PO SCH (08:17)
[2020-09-08] MEDS: lactobacillus rhamnosus 10,000 MMU CELLS/CAPSULE PO SCH ×2 (08:17→21:26)
[2020-09-08] MEDS: buprenorphine/naloxone 2-0.5mg sublingual tablet SL SCH ×3 (08:17→21:00)
[2020-09-08] MEDS: vancomycin/NS 1 GM ADD-VANTAGE 250 ML IV SCH (12:11)
[2020-09-08] MEDS: acetaminophen 325mg tablet PO PRN ×2 (13:12→20:42)
[2020-09-08] MEDS ORDERED: LIDOcaine 4% (40 mg/ml) topical solution 50ml TP PRN (13:50)
[2020-09-08] MEDS ORDERED: iohexol 350MG/ML 100ml bottle IV ONE (14:03)
[2020-09-08] MEDS ORDERED: nitroGLYCERIN in D5W 50mg/250ml (Tridil) infusion IV ONE (14:15)
[2020-09-08] MEDS ORDERED: sevoflurane 250ml liquid IH ONE (14:15)
[2020-09-08] MEDS ORDERED: midazolam 2 mg/2 ml injection ONE (14:19)
[2020-09-08] MEDS ORDERED: fentaNYL /PF 50mcg/ml 5ml ampule ONE (14:19)
[2020-09-08] MEDS ORDERED: nitroGLYCERIN-Tridil 50MG/D5W 250 ML IV ONE (14:38)
[2020-09-08 14:41] LABS: PARTIAL THROMBOPLASTIN TIME 30 SECONDS (22-32)
[2020-09-08] MEDS ORDERED: heparin 10,000 units/1 ML INJ ONE (14:42)
--- NOTE | 2020-09-08 14:54 | NUR ---
Before stating wound care Dr. Buck removed and examined patients left groin. Dressing reapplied but then patients left groin started to bleed out. Primary nurse held pressure while bright alberto warm blood drained out. OR and Dr. Chun was called. Will hold wound VAC dressing care today.
[2020-09-08] MEDS ORDERED: heparin 1,000unit/ml 10ml vial 10 ML ONE (15:03)
[2020-09-08] MEDS ORDERED: etomidate 2mg/ml inj. ONE (15:03)
[2020-09-08] MEDS ORDERED: rocuronium 10mg/ml inj IV ONE (15:03)
[2020-09-08] MEDS ORDERED: morphine 10mg/ml inj. ONE (15:26)
[2020-09-08 17:08] LABS: HIV ANTIBODY 1&2 RAPID NON-REACTIVE (Neg)
[2020-09-08] MEDS ORDERED: meperidine/PF 25mg/ml syringe IV PRN ×3 (17:10)
[2020-09-08] MEDS ORDERED: proCHLORperazine 10 MG/2 ml inj IV PRN (17:10)
[2020-09-08] MEDS ORDERED: morphine 2 MG/ML inj. syringe IV PRN (17:10)
[2020-09-08] MEDS ORDERED: ringers solution, lacted 1,000 ML IV SCH (17:10)
[2020-09-08] MEDS ORDERED: ondansetron/PF 4mg/2ml inj IV PRN ×2 (17:10→18:50)
[2020-09-08] MEDS ORDERED: morphine 4 MG/ML inj SYRINge IV PRN (17:10)
[2020-09-08] MEDS ORDERED: amox tr/potassium clavulanate 875/125mg TAB PO SCH (17:30)
--- NOTE | 2020-09-08 17:31 | NUR ---
Patient was assessed by physician when wound care was in room, pressure dressing removed at this time. Patient did not bleed from post op wound, dressing was applied by wound care at this time. Patient was added to Stat CT to find out what post op site was doing. Upon reintering room minutes later with contrast sceening form, patient was found in large pool of bright red blood coming from new dressing. Patient was awake and alert and pressure was immediately applied. Patient soaked trough 2 packs of 4x4, backup with two rolls of kerlex. Kept holding pressure while hothouse worker was notified. Lab was notified for stat draw on PT INR (patient on elequis), Dr. Chun notified at this time and operating was prepared for emergent surgery. Patient vitals taken at this time, all vitals stable bp 130/77 hr 108 rr 22 02 sat 98 temp 99.5. At this time Dr. chun came to floor and consented patient at this time. Transported patient down to OR at this time. Pressure was held at site continuously from the time of finding bleed until Dr. chun gave the okay to stop holding pressure in OR upon sedations. At this time surgery staff assumed care of patient.
[2020-09-08] MEDS ORDERED: fentaNYL/PF 50MCG/1 ML 2ML syringe IV PRN (18:25)
[2020-09-08] MEDS ORDERED: midazolam 2 mg/2 ml injection IV ONE (18:25)
[2020-09-08] MEDS ORDERED: LIDOcaine 2% (20mg/ml) 5ml vial ONE (18:39)
[2020-09-08] MEDS ORDERED: nitroPRUSSIDE in NS 100 ML IV PRN (19:10)
[2020-09-08] MEDS ORDERED: NORepinephrine 8mg/ 250ml NS 250 ML IV PRN (19:10)
--- NOTE | 2020-09-08 19:25 | NUR ---
MOVED WITH PT TO ICU RM [address] HYMAN, RECEIVED REPORT FROM DR HYMAN, PT INTUBATED, BEING BAGGED RT SETS UP VENT, PT HAS ART LINE TO LEFT WRIST, CVL TO RIGHT NECK-NIPRIDE RUNNING PER DR HYMAN REQUEST AT 0.4MCG, PT SBP TO BE KEPT BTW 130-140, PLAN TO SET UP VERSED AND FENTANYL QTT FOR SEDATION, GIVEN 2MG VERSED IVP UPON ARRIVAL, PT STILL SEDATED BUT SOME RESPONSE TO MOVEMENT CANDACE -1, ET TUBE AT 26 RIGHT CORNER OF LIP LINE, OG IN PLACE WELL, ISLAND DRSG TO ABD-CDI, LEFT THIGH ISLAND DRSG-CDI, WOUND VAC TO LEFT GROIN AT 75MMHG CONT SXN WITH BLOODY DRAINAGE NOTED, +2 PULSE TO LEFT FOOT, PINK WARM, NOTED TO HAVE PREVIOUS WOUND/FASCIOTOMY TO LEFT CALF-WRAPPED CDI, F,C IN PLACE DRAINING YELLOW URINE, PIT BOSS AT BEDSIDE AT WELL.
[2020-09-08] MEDS: midazolam 100mg in NS 100ml 100 ML IV PRN (19:47)
[2020-09-08] MEDS: FENTANYL-0.9 % NACL/PF 100 ML IV PRN ×2 (19:47→21:51)
[2020-09-08 19:48] LABS: EOSINOPHILS % (AUTO) 0 % (0-6); MEAN CORPUSCULAR HEMOGLOBIN 29.4 PG (27.0-31.0); MONOCYTES # (AUTO) 1.4 X10'3 (0-0.9)
[2020-09-08] MEDS: nitroPRUSSIDE (NIPRIDE) (200MCG/ML) 100ML Drip IV SCH ×2 (19:49→20:48)
[2020-09-08 19:50] LABS: BASOPHILS % (AUTO) 0.3 % (0-1); HEMATOCRIT 27.6 % (42.0-52.0); HEMOGLOBIN 9.3 g/dl (14.0-17.9); LYMPHOCYTES # (AUTO) 2.2 X10'3 (1.1-4.8); LYMPHOCYTES % (AUTO) 14.3 % (21-51); MEAN CORPUSCULAR HGB CONC 33.8 g/dL (33.0-36.5); MEAN CORPUSCULAR VOLUME 86.9 FL (78-98); MEAN PLATELET VOLUME 7.1 FL (7.4-10.4); MONOCYTES % (AUTO) 8.7 % (2-12); NEUTROPHILS % (AUTO) 76.7 % (42-75); PARTIAL THROMBOPLASTIN TIME 32 SECONDS (22-32); PLATELET COUNT 375 X10'3 (140-440); RED BLOOD COUNT 3.17 X10'6 (4.70-6.10); RED CELL DISTRIBUTION WIDTH 18.3 % (11.5-14.5); WHITE BLOOD COUNT 15.6 X10'3 (4.5-11.0)
[2020-09-08 19:51] LABS: ALANINE AMINOTRANSFERASE 11 U/L (12-78); ALBUMIN 1.5 G/DL (3.4-5.0); ALBUMIN/GLOBULIN RATIO 0.5 (1.1-1.5); ALKALINE PHOSPHATASE 61 IU/L (46-116); ANION GAP 10 (8-16); ASPARTATE AMINO TRANSFERASE 16 U/L (10-37); BILIRUBIN,TOTAL 0.7 MG/DL (0.1-1.0); BLOOD UREA NITROGEN 6 MG/DL (7-18); BUN/CREATININE RATIO 11.3 (5.4-32.0); CHLORIDE 102 MMOL/L (99-107); CREATININE 0.53 MG/DL (0.60-1.10); GLUCOSE 122 MG/DL (70-104); MAGNESIUM 1.6 MG/DL (1.5-2.4); PHOSPHORUS 3.9 MG/DL (2.3-4.5); POTASSIUM 4.3 MMOL/L (3.5-5.1); SODIUM 134 MMOL/L (135-145); TOTAL CARBON DIOXIDE 22.2 MMOL/L (24-32); TOTAL PROTEIN 4.7 G/DL (6.4-8.2); eGFR > 90 ML/MIN
[2020-09-08 19:56] LABS: ABG BASE EXCESS -3.3 mmol/L (-2.0-2.0); ABG HCO3 21.4 mmol/L (22.0-26.0); ABG OXYGEN SATURATION 98.7 % (94-97); ABG PO2 (T) 150.3 mmHg (75.0-100.0); FCOHb 0.2 % (0.0-3.9); FMetHb 0.4 % (0.0-1.5); FO2Hb 98.1 % (94-97); PATIENT TEMPERATURE 36.3; PEEP 5 cm H2O; RESPIRATORY RATE 12 b/min; TIDAL VOLUME 650 mL; TOTAL HEMOGLOBIN 10.9 G/dl (14.0-18.0)
[2020-09-08] MEDS ORDERED: vancomycin/NS 1 GM ADD-VANTAGE 250 ML IV SCH (20:00)
[2020-09-08 20:05] LABS: ABG BASE EXCESS -4.4 mmol/L (-2.0-2.0); ABG HCO3 19.9 mmol/L (22.0-26.0); ABG OXYGEN SATURATION 98.3 % (94-97); ABG PCO2 (T) 32.1 mmHg (35.0-48.0); ABG PO2 (T) 142.9 mmHg (75.0-100.0); FCOHb 0.1 % (0.0-3.9); FMetHb 0.3 % (0.0-1.5); FO2Hb 97.9 % (94-97); PATIENT TEMPERATURE 36.3; PEEP 5 cm H2O; RESPIRATORY RATE 12 b/min; TIDAL VOLUME 650 mL; TOTAL HEMOGLOBIN 9.5 G/dl (14.0-18.0)
--- NOTE | 2020-09-08 20:20 | NUR ---
PT CARE TURNED OVER TO ADRI CLAM SHUCKING MACHINE TENDER, PT COMFORTABLE, VERSED/FENTANYL/NIPRIDE QTT RUNNING TO KEEP SEDATED AND SBP 130-140, NO CHANGES TO ABD, THIGH OR GROIN SITES-CDI +2PULSE TO LEFT FOOT, F/C DRAINING, PT VENTILATED-SIMV AT 80%O2. VS-STABLE, PRIMARY RN AT BEDSIDE, HAS BEEN ASSISTING SINCE PT ARRIVAL TO UNIT, ALL QUESTIONS ANSWERED.
--- NOTE | 2020-09-08 20:39 | NUR ---
Patient returned to ICU from OR intubated with 8.0 ETT 26 at lips. Patient is sedated and will remain intubated overnight. Per Dr. Vo patient SBP 120-130. Patient currently has Nipride infusing. RN stated MIVF, Fentanyl and Versed adn will titrate to full effect as well as Nipride. Patient has a wound vac to left groin at 75 mmHg, a left radial arterial line, and a right IJ triple lumen. Patient has a yu catether in place as well. 20g noted to left AC that was flushed. Patient OG hooked to low intermittent suction. Patient has 2+ pulses noted radially and pedally. RN will continue to monitorl.
[2020-09-08] MEDS ORDERED: amox tr/clav. pot 400mg/5ml 100ml suspension PO SCH ×2 (21:18→21:19)
[2020-09-08] MEDS ORDERED: docusate sodium 100mg/10ml UD cup PO ONE (21:25)
[2020-09-08] MEDS: DOXYCYCLINE 100MG CAPSULE PO SCH (21:26)
[2020-09-08] MEDS: potassium CL 20mEq in D5-1/2NS 1,000 ML IV SCH (21:26)
[2020-09-08] MEDS: nitroPRUSSIDE sod inj. 50 MG in dextrose 5%-water 248 ML IV SCH (21:35)
[2020-09-08] MEDS: albumin (Human) 5% 250ml 250 ML IV PRN (22:13)
[2020-09-09] VITALS (24 sets, daily range): BP systolic 89–142; BP diastolic 41–69
[2020-09-09] MEDS: niCARDipine-NS 40mg/200ml IVPB 200 ML IV PRN ×6 (01:51→17:36)
[2020-09-09] MEDS: FENTANYL-0.9 % NACL/PF 100 ML IV PRN ×4 (01:54→19:43)
[2020-09-09] MEDS: nitroPRUSSIDE sod inj. 50 MG in dextrose 5%-water 248 ML IV SCH (02:16)
[2020-09-09 02:45] LABS: ABG BASE EXCESS 1.1 mmol/L (-2.0-2.0); ABG HCO3 24.6 mmol/L (22.0-26.0); ABG OXYGEN SATURATION 94.1 % (94-97); ABG PCO2 (T) 34.7 mmHg (35.0-48.0); ABG PO2 (T) 72.5 mmHg (75.0-100.0); FCOHb 0.3 % (0.0-3.9); FMetHb 0.3 % (0.0-1.5); FO2Hb 93.5 % (94-97); PEEP 5 cm H2O; RESPIRATORY RATE 12 b/min; TIDAL VOLUME 650 mL; TOTAL HEMOGLOBIN 10.4 G/dl (14.0-18.0)
[2020-09-09] MEDS: potassium CL 20mEq in D5-1/2NS 1,000 ML IV SCH ×4 (02:50→23:33)
[2020-09-09] MEDS: midazolam 100mg in NS 100ml 100 ML IV PRN (03:20)
[2020-09-09 03:21] LABS: BASOPHILS % (AUTO) 0.2 % (0-1); EOSINOPHILS % (AUTO) 0 % (0-6); HEMATOCRIT 27.4 % (42.0-52.0); HEMOGLOBIN 9.4 g/dl (14.0-17.9); LYMPHOCYTES # (AUTO) 1.6 X10'3 (1.1-4.8); LYMPHOCYTES % (AUTO) 11.6 % (21-51); MEAN CORPUSCULAR HEMOGLOBIN 29.4 PG (27.0-31.0); MEAN CORPUSCULAR HGB CONC 34.2 g/dL (33.0-36.5); MEAN CORPUSCULAR VOLUME 85.8 FL (78-98); MEAN PLATELET VOLUME 7.3 FL (7.4-10.4); MONOCYTES # (AUTO) 1.3 X10'3 (0-0.9); MONOCYTES % (AUTO) 9.3 % (2-12); NEUTROPHILS # (AUTO) 10.7 X10'3 (1.8-7.7); NEUTROPHILS % (AUTO) 78.9 % (42-75); PLATELET COUNT 385 X10'3 (140-440); RED BLOOD COUNT 3.19 X10'6 (4.70-6.10); RED CELL DISTRIBUTION WIDTH 18.2 % (11.5-14.5); WHITE BLOOD COUNT 13.6 X10'3 (4.5-11.0)
[2020-09-09 03:26] LABS: ALANINE AMINOTRANSFERASE 10 U/L (12-78); ALBUMIN 1.7 G/DL (3.4-5.0); ALBUMIN/GLOBULIN RATIO 0.5 (1.1-1.5); ALKALINE PHOSPHATASE 55 IU/L (46-116); ANION GAP 9 (8-16); ASPARTATE AMINO TRANSFERASE 14 U/L (10-37); BILIRUBIN,TOTAL 0.5 MG/DL (0.1-1.0); BLOOD UREA NITROGEN 5 MG/DL (7-18); BUN/CREATININE RATIO 10.9 (5.4-32.0); CALCIUM 7.1 MG/DL (8.5-10.1); CHLORIDE 102 MMOL/L (99-107); CREATININE 0.46 MG/DL (0.60-1.10); GLUCOSE 149 MG/DL (70-104); MAGNESIUM 1.7 MG/DL (1.5-2.4); POTASSIUM 3.7 MMOL/L (3.5-5.1); SODIUM 135 MMOL/L (135-145); TOTAL CARBON DIOXIDE 24.5 MMOL/L (24-32); TOTAL PROTEIN 4.8 G/DL (6.4-8.2); eGFR > 90 ML/MIN
--- NOTE | 2020-09-09 06:15 | NUR ---
Patient in room CICU 2010. I have received report from Beatrice RACHEL and had the opportunity to ask questions and assume patient care.
[2020-09-09] MEDS: K and/or MAG REPLACEMENT MC SCH ×2 (07:33→19:30)
[2020-09-09] MEDS: docusate sodium 100mg/10ml UD cup PO SCH ×2 (07:54→19:41)
[2020-09-09] MEDS: lactobacillus rhamnosus 10,000 MMU CELLS/CAPSULE PO SCH ×2 (07:54→19:41)
[2020-09-09] MEDS: aspirin 81mg tablet.DR PO SCH (07:54)
[2020-09-09] MEDS: DOXYCYCLINE 100MG CAPSULE PO SCH ×2 (07:54→17:32)
[2020-09-09] MEDS: nicotine 21mg patch - 24 hr TD SCH (07:55)
[2020-09-09] MEDS: albumin (Human) 5% 250ml 250 ML IV PRN ×2 (07:58→20:26)
[2020-09-09] MEDS: pantoprazole 40mg Tablet.DR PO SCH (08:00)
--- NOTE | 2020-09-09 08:32 | NUR ---
Spoke with Dr. hCun over the phone, MD stated to turn off versed and start weaning parameters with RT. Wound care at bedside placing WV to left lower leg.
[2020-09-09] MEDS: pantoprazole 40 MG vial IV SCH (09:13)
[2020-09-09] MEDS: normal saline 1000ml 1,000 ML IV SCH ×2 (09:20→19:20)
[2020-09-09] MEDS ORDERED: VANCOMYCIN LEVEL IV ONE (11:30)
[2020-09-09] MEDS: furosemide 40mg/4ml inj IV SCH ×2 (15:15→23:35)
[2020-09-09 17:16] LABS: ABG BASE EXCESS 2.4 mmol/L (-2.0-2.0); ABG HCO3 26.1 mmol/L (22.0-26.0); ABG OXYGEN SATURATION 91.4 % (94-97); ABG PCO2 (T) 38.5 mmHg (35.0-48.0); ABG PO2 (T) 65.2 mmHg (75.0-100.0); FCOHb 0.3 % (0.0-3.9); FMetHb 0.4 % (0.0-1.5); FO2Hb 90.8 % (94-97); PATIENT TEMPERATURE 37.9; PEEP 5 cm H2O; RESPIRATORY RATE 12 b/min; TIDAL VOLUME 611 mL; TOTAL HEMOGLOBIN 10.1 G/dl (14.0-18.0)
[2020-09-09] MEDS: vancomycin/NS 1 GM ADD-VANTAGE 250 ML IV SCH (17:32)
--- NOTE | 2020-09-09 18:15 | NUR ---
Problems reprioritized. Patient report given, questions answered & plan of care reviewed with Farida RACHEL.
--- NOTE | 2020-09-09 18:20 | NUR ---
Patient in room CICU 2010. I have received report from Rosaura Luna RN and had the opportunity to ask questions and assume patient care.
[2020-09-09] MEDS: mineral oil/petrolatum ophthal oint EACHEYE SCH (19:40)
[2020-09-09] MEDS: cefepime 2g/NS 100ml ADVANTAGE 100 ML IV SCH (23:35)
[2020-09-10] VITALS (23 sets, daily range): BP systolic 95–146; BP diastolic 42–62
[2020-09-10] MEDS: metroNIDAZOLE-Flagyl 500mg/NS 100 ML IV SCH ×3 (00:09→16:33)
[2020-09-10] MEDS: vancomycin/NS 1 GM ADD-VANTAGE 250 ML IV SCH ×3 (01:42→17:22)
[2020-09-10] MEDS: mineral oil/petrolatum ophthal oint EACHEYE SCH ×4 (01:42→19:23)
[2020-09-10 02:49] LABS: BASOPHILS % (AUTO) 0.4 % (0-1); EOSINOPHILS # (AUTO) 0.1 X10'3 (0-0.9); EOSINOPHILS % (AUTO) 0.6 % (0-6); HEMATOCRIT 23.5 % (42.0-52.0); HEMOGLOBIN 7.8 g/dl (14.0-17.9); LYMPHOCYTES # (AUTO) 1.6 X10'3 (1.1-4.8); LYMPHOCYTES % (AUTO) 12.4 % (21-51); MEAN CORPUSCULAR HEMOGLOBIN 28.9 PG (27.0-31.0); MEAN CORPUSCULAR HGB CONC 33.1 g/dL (33.0-36.5); MEAN CORPUSCULAR VOLUME 87.3 FL (78-98); MEAN PLATELET VOLUME 7.3 FL (7.4-10.4); MONOCYTES # (AUTO) 1.2 X10'3 (0-0.9); MONOCYTES % (AUTO) 9.6 % (2-12); NEUTROPHILS # (AUTO) 9.6 X10'3 (1.8-7.7); PLATELET COUNT 368 X10'3 (140-440); RED BLOOD COUNT 2.69 X10'6 (4.70-6.10); RED CELL DISTRIBUTION WIDTH 18.2 % (11.5-14.5); WHITE BLOOD COUNT 12.5 X10'3 (4.5-11.0)
[2020-09-10 03:02] LABS: ALANINE AMINOTRANSFERASE 10 U/L (12-78); ALBUMIN 1.7 G/DL (3.4-5.0); ALBUMIN/GLOBULIN RATIO 0.5 (1.1-1.5); ALKALINE PHOSPHATASE 53 IU/L (46-116); ANION GAP 2 (8-16); ASPARTATE AMINO TRANSFERASE 11 U/L (10-37); BILIRUBIN,TOTAL 0.4 MG/DL (0.1-1.0); BLOOD UREA NITROGEN 4 MG/DL (7-18); BUN/CREATININE RATIO 8.2 (5.4-32.0); CALCIUM 7.2 MG/DL (8.5-10.1); CHLORIDE 104 MMOL/L (99-107); CREATININE 0.49 MG/DL (0.60-1.10); GLUCOSE 117 MG/DL (70-104); MAGNESIUM 1.7 MG/DL (1.5-2.4); POTASSIUM 3.2 MMOL/L (3.5-5.1); SODIUM 135 MMOL/L (135-145); TOTAL CARBON DIOXIDE 28.8 MMOL/L (24-32); TOTAL PROTEIN 4.9 G/DL (6.4-8.2); eGFR > 90 ML/MIN
[2020-09-10 03:04] LABS: ABG HCO3 27.1 mmol/L (22.0-26.0); ABG OXYGEN SATURATION 95.7 % (94-97); ABG PCO2 (T) 40.3 mmHg (35.0-48.0); ABG PO2 (T) 85.8 mmHg (75.0-100.0); FCOHb 0.3 % (0.0-3.9); FMetHb 0.2 % (0.0-1.5); FO2Hb 95.2 % (94-97); PATIENT TEMPERATURE 37.7; PEEP 5 cm H2O; RESPIRATORY RATE 12 b/min; TIDAL VOLUME 650 mL; TOTAL HEMOGLOBIN 8.6 G/dl (14.0-18.0)
[2020-09-10] MEDS: normal saline 1000ml 1,000 ML IV SCH ×2 (03:43→15:20)
[2020-09-10] MEDS: niCARDipine-NS 40mg/200ml IVPB 200 ML IV PRN ×2 (03:44→20:04)
--- NOTE | 2020-09-10 05:13 | NUR ---
Page sent to Dr Chun, awaiting call back.
--- NOTE | 2020-09-10 06:14 | NUR ---
Problems reprioritized. Patient report given, questions answered & plan of care reviewed with . WILSON Camilo
[2020-09-10] MEDS ORDERED: potassium Cl 40MEQ/250ML bag 270 ML IV PRN (06:15)
[2020-09-10] MEDS ORDERED: potassium Cl 20 mEq SR tablet PO PRN (06:15)
[2020-09-10] MEDS: FENTANYL-0.9 % NACL/PF 100 ML IV PRN ×2 (06:37→08:10)
[2020-09-10] MEDS: furosemide 40mg/4ml inj IV SCH ×2 (07:28→16:33)
[2020-09-10] MEDS: pantoprazole 40 MG vial IV SCH (07:28)
[2020-09-10] MEDS: K and/or MAG REPLACEMENT MC SCH ×2 (08:00→19:23)
[2020-09-10] MEDS: lactobacillus rhamnosus 10,000 MMU CELLS/CAPSULE PO SCH ×2 (08:00→19:46)
[2020-09-10] MEDS: aspirin 81mg tablet.DR PO SCH (08:00)
[2020-09-10] MEDS: docusate sodium 100mg/10ml UD cup PO SCH (08:00)
[2020-09-10] MEDS: cefepime 2g/NS 100ml ADVANTAGE 100 ML IV SCH ×2 (08:20→16:33)
[2020-09-10] MEDS: nicotine 21mg patch - 24 hr TD SCH (08:22)
[2020-09-10] MEDS: DOXYCYCLINE 100MG CAPSULE PO SCH ×2 (08:30→19:20)
[2020-09-10] MEDS: nitroPRUSSIDE sod inj. 50 MG in dextrose 5%-water 248 ML IV SCH (11:31)
[2020-09-10] MEDS: potassium CL 20mEq in D5-1/2NS 1,000 ML IV SCH ×2 (13:19→18:50)
[2020-09-10 13:38] LABS: ABG HCO3 26.8 mmol/L (22.0-26.0); ABG OXYGEN SATURATION 92.1 % (94-97); ABG PCO2 (T) 39.5 mmHg (35.0-48.0); ABG PO2 (T) 67.8 mmHg (75.0-100.0); FCOHb 0.3 % (0.0-3.9); FMetHb 0.3 % (0.0-1.5); FO2Hb 91.5 % (94-97); PATIENT TEMPERATURE 37.9; PEEP 5 cm H2O; TIDAL VOLUME 411 mL; TOTAL HEMOGLOBIN 8.4 G/dl (14.0-18.0)
[2020-09-10] MEDS ORDERED: CADD PCA waste documentation MC PRN (15:00)
[2020-09-10] MEDS ORDERED: naloxone 0.4 mg/ml inj IV PRN (15:00)
[2020-09-10] MEDS: HYDROmorphone/NS 1 mg/ml CADD 50 ML IV SCH ×5 (16:14→23:00)
[2020-09-10] MEDS ORDERED: VANCOMYCIN LEVEL IV ONE (16:30)
--- NOTE | 2020-09-10 18:25 | NUR ---
Patient in room CICU 2010. I have received report from Leslee RACHEL and had the opportunity to ask questions and assume patient care.
[2020-09-10] MEDS: VANCOMYCIN 1,500MG in NS 500ml IVPB IV SCH (19:21)
[2020-09-10] MEDS: docusate sod 100mg capsule PO SCH (20:00)
[2020-09-10] MEDS ORDERED: HYDROcodone/acetaminophen 10/325mg tab PO PRN (21:30)
[2020-09-11] VITALS (23 sets, daily range): BP systolic 97–137; BP diastolic 46–80
[2020-09-11] MEDS: cefepime 2g/NS 100ml ADVANTAGE 100 ML IV SCH ×3 (00:01→15:53)
[2020-09-11] MEDS: furosemide 40mg/4ml inj IV SCH ×3 (00:01→15:54)
[2020-09-11] MEDS: metroNIDAZOLE-Flagyl 500mg/NS 100 ML IV SCH ×3 (00:45→15:54)
[2020-09-11] MEDS: HYDROmorphone/NS 1 mg/ml CADD 50 ML IV SCH ×12 (01:00→23:00)
[2020-09-11] MEDS: normal saline 1000ml 1,000 ML IV SCH (01:20)
[2020-09-11] MEDS: mineral oil/petrolatum ophthal oint EACHEYE SCH ×4 (02:00→19:39)
[2020-09-11] MEDS: VANCOMYCIN 1,500MG in NS 500ml IVPB IV SCH (04:03)
[2020-09-11 04:21] LABS: BASOPHILS # (AUTO) 0.1 X10'3 (0-0.2); BASOPHILS % (AUTO) 0.4 % (0-1); EOSINOPHILS # (AUTO) 0.1 X10'3 (0-0.9); HEMATOCRIT 22.8 % (42.0-52.0); HEMOGLOBIN 7.6 g/dl (14.0-17.9); LYMPHOCYTES # (AUTO) 2.3 X10'3 (1.1-4.8); LYMPHOCYTES % (AUTO) 15.5 % (21-51); MEAN CORPUSCULAR HEMOGLOBIN 28.6 PG (27.0-31.0); MEAN CORPUSCULAR HGB CONC 33.1 g/dL (33.0-36.5); MEAN CORPUSCULAR VOLUME 86.3 FL (78-98); MEAN PLATELET VOLUME 7.2 FL (7.4-10.4); NEUTROPHILS # (AUTO) 11.2 X10'3 (1.8-7.7); NEUTROPHILS % (AUTO) 76.1 % (42-75); PLATELET COUNT 404 X10'3 (140-440); RED BLOOD COUNT 2.65 X10'6 (4.70-6.10); RED CELL DISTRIBUTION WIDTH 17.8 % (11.5-14.5); WHITE BLOOD COUNT 14.7 X10'3 (4.5-11.0)
[2020-09-11 04:33] LABS: ALANINE AMINOTRANSFERASE 10 U/L (12-78); ALBUMIN 1.6 G/DL (3.4-5.0); ALBUMIN/GLOBULIN RATIO 0.4 (1.1-1.5); ALKALINE PHOSPHATASE 66 IU/L (46-116); ANION GAP 2 (8-16); ASPARTATE AMINO TRANSFERASE 18 U/L (10-37); BILIRUBIN,TOTAL 0.4 MG/DL (0.1-1.0); BLOOD UREA NITROGEN 5 MG/DL (7-18); BUN/CREATININE RATIO 8.8 (5.4-32.0); CALCIUM 7.9 MG/DL (8.5-10.1); CHLORIDE 103 MMOL/L (99-107); CREATININE 0.57 MG/DL (0.60-1.10); GLUCOSE 97 MG/DL (70-104); MAGNESIUM 1.8 MG/DL (1.5-2.4); POTASSIUM 3.4 MMOL/L (3.5-5.1); SODIUM 136 MMOL/L (135-145); TOTAL CARBON DIOXIDE 31.1 MMOL/L (24-32); TOTAL PROTEIN 5.4 G/DL (6.4-8.2); eGFR > 90 ML/MIN
--- NOTE | 2020-09-11 06:35 | NUR ---
Problems reprioritized. Patient report given, questions answered & plan of care reviewed with Santo RACHEL.
--- NOTE | 2020-09-11 06:45 | NUR ---
A-Line to LT radial d/c'd. Cardene was turned on from 1999 and has been off since 0000. Pressure held until hemostasis achieved. PT tolerated well. Drsg applied, no signs of bleeding. Will continue to monitor.
[2020-09-11] MEDS: docusate sod 100mg capsule PO SCH ×2 (07:17→19:50)
[2020-09-11] MEDS: nicotine 21mg patch - 24 hr TD SCH (07:17)
[2020-09-11] MEDS: lactobacillus rhamnosus 10,000 MMU CELLS/CAPSULE PO SCH ×2 (07:17→19:50)
[2020-09-11] MEDS: aspirin 81mg tablet.DR PO SCH (07:17)
[2020-09-11] MEDS: pantoprazole 40 MG vial IV SCH (07:19)
[2020-09-11] MEDS ORDERED: silver nitrate applicator stick TP ONE (07:45)
[2020-09-11] MEDS: K and/or MAG REPLACEMENT MC SCH ×2 (08:00→19:40)
[2020-09-11] MEDS: DOXYCYCLINE 100MG CAPSULE PO SCH (08:52)
[2020-09-11] MEDS ORDERED: LIDOcaine 4% (40 mg/ml) topical solution 50ml TP PRN (10:25)
--- NOTE | 2020-09-11 12:02 | NUR ---
left common femoral artery with exploration of left groin, sartorius muscle flap with wound vac placement to left groin on 09/08 due chronic left lower limb ischemia and chronic LE wound. H/o EtOH. Now on clear liquids. Will need written high protein diet education handout with verbal review and encourage eating high protein foods when diet is advanced to promote wound healing. Will monitor for diet advancement and appetite. Recommend: 1. advance diet as medically indicated to heart healthy 2. routine bowel care 3. weight per rx 4. encourage high protein foods when diet advanced, monitor need for additional protein or ONS 5. provide written high protein education handout Addendum: 09/11/20 at [address] Amended: Links added.
[2020-09-11] MEDS: potassium Cl 20 mEq SR tablet PO PRN ×2 (12:42→18:02)
--- NOTE | 2020-09-11 14:48 | NUR ---
Initial: Patient is extubated, s/p L ileopopliteal, bypass with graft debridement left common femoral artery with exploration of left groin, sartorius muscle flap with wound vac placement to left groin on 09/08 due chronic left lower limb ischemia and chronic LE wound. H/o EtOH. Now on clear liquids. Will need written high protein diet education handout with verbal review and encourage eating high protein foods when diet is advanced to promote wound healing. Will monitor for diet advancement and appetite. Recommend: 1. advance diet as medically indicated to heart healthy 2. routine bowel care 3. weight per rx 4. encourage high protein foods when diet advanced, monitor need for additional protein or ONS 5. provide written high protein education handout Addendum: 09/11/20 at [address] Amended: Links added.
--- NOTE | 2020-09-11 18:20 | NUR ---
Patient in room RITO 348. I have received report from aSnto RACHEL and had the opportunity to ask questions and assume patient care.
[2020-09-11] MEDS ORDERED: MESSAGE TO NURSING IV ONE (19:30)
--- NOTE | 2020-09-11 21:50 | NUR ---
Problems reprioritized. Patient report given, questions answered & plan of care reviewed with Elisha RACHEL.
--- NOTE | 2020-09-11 21:53 | NUR ---
Patient in room CICU 2010. I have received report from WILSON Fierro and had the opportunity to ask questions and assume patient care.
--- NOTE | 2020-09-11 22:45 | NUR ---
Pt arrived to floor accompanied by RN. Used slide board to transfer patient from bed to bed. Physical assessment completed, VSS, , pulses palpable, cleansed groin area and placed new FC stat lock closer to groin area to relieve tension on the line.
[2020-09-12] VITALS: BP_SYST 115; BP_SYST 136; BP_DIAS 63; BP_DIAS 77
[2020-09-12] MEDS: piperacillin/tazo 3.375gm/50ml 50 ML IV SCH ×4 (00:30→23:30)
[2020-09-12] MEDS: furosemide 40mg/4ml inj IV SCH ×4 (00:30→23:31)
[2020-09-12] MEDS: HYDROmorphone/NS 1 mg/ml CADD 50 ML IV SCH ×13 (00:41→23:00)
[2020-09-12] MEDS: mineral oil/petrolatum ophthal oint EACHEYE SCH ×4 (01:17→20:00)
[2020-09-12 06:01] LABS: ALBUMIN 1.7 G/DL (3.4-5.0); ANION GAP 2 (8-16); BLOOD UREA NITROGEN 7 MG/DL (7-18); BUN/CREATININE RATIO 10.1 (5.4-32.0); CALCIUM 8.3 MG/DL (8.5-10.1); CHLORIDE 97 MMOL/L (99-107); CREATININE 0.69 MG/DL (0.60-1.10); GLUCOSE 88 MG/DL (70-104); MAGNESIUM 1.7 MG/DL (1.5-2.4); POTASSIUM 3.4 MMOL/L (3.5-5.1); SODIUM 133 MMOL/L (135-145); TOTAL CARBON DIOXIDE 33.7 MMOL/L (24-32); eGFR > 90 ML/MIN
--- NOTE | 2020-09-12 06:24 | NUR ---
Problems reprioritized. Patient report given, questions answered & plan of care reviewed with WILSON Anderson.
--- NOTE | 2020-09-12 06:49 | NUR ---
Patient in room RITO 348. I have received report from WILSON Tolentino and had the opportunity to ask questions and assume patient care.
[2020-09-12] MEDS: nicotine 21mg patch - 24 hr TD SCH (07:55)
[2020-09-12] MEDS: aspirin 81mg tablet.DR PO SCH (07:55)
[2020-09-12] MEDS: docusate sod 100mg capsule PO SCH ×2 (07:56→20:31)
[2020-09-12] MEDS: lactobacillus rhamnosus 10,000 MMU CELLS/CAPSULE PO SCH ×2 (07:56→20:31)
[2020-09-12] MEDS: pantoprazole 40mg Tablet.DR PO SCH (07:56)
[2020-09-12 08:00] VITALS: BP 119/65
[2020-09-12] MEDS: K and/or MAG REPLACEMENT MC SCH ×2 (08:00→20:00)
[2020-09-12 11:00] VITALS: BP 120/75
[2020-09-12] MEDS: potassium CL 20mEq in D5-1/2NS 1,000 ML IV SCH (11:47)
--- NOTE | 2020-09-12 15:38 | NUR ---
Remove Rt IJ and Arriaza cath per Dr Chun today.
[2020-09-12] MEDS: potassium Cl 20 mEq SR tablet PO PRN ×2 (16:19→20:31)
--- NOTE | 2020-09-12 17:32 | NUR ---
Arriaza cath removed as ordered. pt voided 350 ml of clear yellow urine in urinal right after removal. IJ removed. no bleeding or discomfort noted. Pt tolerated procedure well.
--- NOTE | 2020-09-12 18:55 | NUR ---
Problems reprioritized. Patient report given, questions answered & plan of care reviewed with WILSON Stein.
[2020-09-12 19:50] VITALS: BP 110/72
[2020-09-13] VITALS: BP 136/77
[2020-09-13] MEDS: mineral oil/petrolatum ophthal oint EACHEYE SCH ×4 (02:00→20:00)
[2020-09-13] MEDS: HYDROmorphone/NS 1 mg/ml CADD 50 ML IV SCH ×11 (03:00→23:00)
--- NOTE | 2020-09-13 05:49 | NUR ---
Student documentation: I have reviewed and agree with all interventions, assessments performed and documented by Mihaela Oviedo Medication Administration: For this medication-pass time frame, all medication were reviewed, dispensed, administered and documented per hospital policy. Addendum: 09/13/20 at 0551 by Sarita Garcia RN Amended: Links added.
[2020-09-13 06:14] LABS: ALBUMIN 1.9 G/DL (3.4-5.0); ANION GAP 5 (8-16); BLOOD UREA NITROGEN 8 MG/DL (7-18); BUN/CREATININE RATIO 10.8 (5.4-32.0); CALCIUM 8.7 MG/DL (8.5-10.1); CHLORIDE 99 MMOL/L (99-107); CREATININE 0.74 MG/DL (0.60-1.10); GLUCOSE 101 MG/DL (70-104); POTASSIUM 3.5 MMOL/L (3.5-5.1); SODIUM 137 MMOL/L (135-145); TOTAL CARBON DIOXIDE 33.3 MMOL/L (24-32); eGFR > 90 ML/MIN
--- NOTE | 2020-09-13 06:20 | NUR ---
Problems reprioritized. Patient report given, questions answered & plan of care reviewed with Xiao RACHEL. Addendum: 09/13/20 at 0622 by Sarita Garcia RN Amended: Links added.
[2020-09-13 07:35] VITALS: BP 119/72
[2020-09-13] MEDS: furosemide 40mg/4ml inj IV SCH ×3 (07:43→23:31)
[2020-09-13] MEDS: aspirin 81mg tablet.DR PO SCH (07:43)
[2020-09-13] MEDS: nicotine 21mg patch - 24 hr TD SCH (07:43)
[2020-09-13] MEDS: lactobacillus rhamnosus 10,000 MMU CELLS/CAPSULE PO SCH ×2 (07:43→19:33)
[2020-09-13] MEDS: docusate sod 100mg capsule PO SCH ×2 (07:43→19:33)
[2020-09-13] MEDS: pantoprazole 40mg Tablet.DR PO SCH (07:43)
[2020-09-13] MEDS: piperacillin/tazo 3.375gm/50ml 50 ML IV SCH ×3 (07:43→23:31)
[2020-09-13] MEDS: K and/or MAG REPLACEMENT MC SCH ×2 (07:44→20:00)
[2020-09-13 11:11] LABS: BASOPHILS # (AUTO) 0.1 X10'3 (0-0.2); BASOPHILS % (AUTO) 0.5 % (0-1); EOSINOPHILS # (AUTO) 0.1 X10'3 (0-0.9); EOSINOPHILS % (AUTO) 0.7 % (0-6); LYMPHOCYTES # (AUTO) 1.8 X10'3 (1.1-4.8); MONOCYTES # (AUTO) 0.7 X10'3 (0-0.9); RED CELL DISTRIBUTION WIDTH 17.8 % (11.5-14.5)
[2020-09-13 11:13] LABS: HEMATOCRIT 27.5 % (42.0-52.0); HEMOGLOBIN 9.2 g/dl (14.0-17.9); LYMPHOCYTES % (AUTO) 16.3 % (21-51); MEAN CORPUSCULAR HEMOGLOBIN 28.8 PG (27.0-31.0); MEAN CORPUSCULAR HGB CONC 33.4 g/dL (33.0-36.5); MEAN CORPUSCULAR VOLUME 86.1 FL (78-98); MEAN PLATELET VOLUME 7.1 FL (7.4-10.4); NEUTROPHILS # (AUTO) 8.6 X10'3 (1.8-7.7); NEUTROPHILS % (AUTO) 76.5 % (42-75); PLATELET COUNT 645 X10'3 (140-440); RED BLOOD COUNT 3.19 X10'6 (4.70-6.10); WHITE BLOOD COUNT 11.3 X10'3 (4.5-11.0)
[2020-09-13 11:20] LABS: PARTIAL THROMBOPLASTIN TIME 27 SECONDS (22-32)
[2020-09-13 11:52] VITALS: BP 131/70
--- NOTE | 2020-09-13 18:15 | NUR ---
Patient in room RITO 348. I have received report from Xiao RACHEL and had the opportunity to ask questions and assume patient care.
--- NOTE | 2020-09-13 18:24 | NUR ---
Problems reprioritized. Patient report given, questions answered & plan of care reviewed with WILSON Villarreal.
[2020-09-13 19:00] VITALS: BP 117/84
[2020-09-13] MEDS: enoxaparin 40mg/0.4ml syringe SUBCUT SCH (19:33)
[2020-09-14] VITALS: BP 119/65
[2020-09-14] MEDS: HYDROmorphone/NS 1 mg/ml CADD 50 ML IV SCH ×12 (01:00→23:00)
[2020-09-14] MEDS: mineral oil/petrolatum ophthal oint EACHEYE SCH ×4 (01:16→19:11)
[2020-09-14 05:37] LABS: BASOPHILS # (AUTO) 0.1 X10'3 (0-0.2); EOSINOPHILS # (AUTO) 0.2 X10'3 (0-0.9); HEMATOCRIT 26.3 % (42.0-52.0); HEMOGLOBIN 8.8 g/dl (14.0-17.9); LYMPHOCYTES # (AUTO) 1.9 X10'3 (1.1-4.8); LYMPHOCYTES % (AUTO) 25.5 % (21-51); MEAN CORPUSCULAR HEMOGLOBIN 28.9 PG (27.0-31.0); MEAN CORPUSCULAR HGB CONC 33.4 g/dL (33.0-36.5); MEAN CORPUSCULAR VOLUME 86.5 FL (78-98); MEAN PLATELET VOLUME 7.2 FL (7.4-10.4); MONOCYTES # (AUTO) 0.7 X10'3 (0-0.9); MONOCYTES % (AUTO) 9.5 % (2-12); NEUTROPHILS # (AUTO) 4.7 X10'3 (1.8-7.7); PLATELET COUNT 594 X10'3 (140-440); RED BLOOD COUNT 3.04 X10'6 (4.70-6.10); RED CELL DISTRIBUTION WIDTH 17.5 % (11.5-14.5); WHITE BLOOD COUNT 7.6 X10'3 (4.5-11.0)
[2020-09-14] MEDS: pantoprazole 40mg Tablet.DR PO SCH (07:09)
[2020-09-14] MEDS: lactobacillus rhamnosus 10,000 MMU CELLS/CAPSULE PO SCH ×2 (07:09→20:00)
[2020-09-14] MEDS: docusate sod 100mg capsule PO SCH ×2 (07:09→19:55)
[2020-09-14] MEDS: furosemide 40mg/4ml inj IV SCH ×3 (07:09→23:40)
[2020-09-14] MEDS: aspirin 81mg tablet.DR PO SCH (07:09)
[2020-09-14] MEDS: nicotine 21mg patch - 24 hr TD SCH (07:09)
[2020-09-14] MEDS: piperacillin/tazo 3.375gm/50ml 50 ML IV SCH ×3 (07:09→23:40)
[2020-09-14] MEDS: K and/or MAG REPLACEMENT MC SCH ×2 (07:10→19:54)
[2020-09-14 07:30] VITALS: BP 122/69
[2020-09-14 11:29] VITALS: BP 109/76
--- NOTE | 2020-09-14 16:01 | NUR ---
Reassessment: Pt PO ~25% avg heart healthy diet fluctuating not meeting healing needs post-op. Pt seen by RD for written/verbal high protein ed w/ RD contact information provided. Pt reports does not eat breakfasts typically, low appetite this admit but is improving, and that is not concerned w/ PO intake at this time. RD encouraged pt protein intake and reviewed ONS options for wound healing. Pt is agreeable to strawberry debra smoothie BIDLD; MD notified. LBM 09/11 receiving routine colace. CRISTINA d/w RN regarding MVI/thiamin for wound healing post-op w/ pt etoh hx as well if MD agreeable. Will continue to monitor for additional protein/kcal needs. Recommend: 1. continue heart healthy diet; encourage PO 2. strawberry debra smoothie BIDLD for wound healing; pending MD verification in EMR 3. routine bowel care 4. weight per rx Addendum: 09/14/20 at [address] Amended: Links added.
[2020-09-14] MEDS: potassium CL 20mEq in D5-1/2NS 1,000 ML IV SCH (17:01)
[2020-09-14] MEDS: JUVEN Smoothie Arginine/Glut./Ca2+Bmb (Juven 19.3pkt) 240ml cup PO SCH (17:30)
[2020-09-14 18:30] VITALS: BP 111/67
[2020-09-14] MEDS: magnesium hydroxide 30ml (MOM) UD suspension PO SCH (19:55)
[2020-09-14] MEDS: enoxaparin 40mg/0.4ml syringe SUBCUT SCH (19:56)
[2020-09-15] VITALS: BP 124/71
[2020-09-15] MEDS: HYDROmorphone/NS 1 mg/ml CADD 50 ML IV SCH ×6 (01:00→11:00)
--- NOTE | 2020-09-15 03:53 | NUR ---
LEFT A MESSAGE FOR LOIDA DIALLO TO START A PICC LINE FOR HOME ABX THERAPY.
--- NOTE | 2020-09-15 06:20 | NUR ---
Problems reprioritized. Patient report given, questions answered & plan of care reviewed with LAKIA. Addendum: 09/15/20 at 0621 by Henry Donald RN Amended: Links added.
[2020-09-15] MEDS: docusate sod 100mg capsule PO SCH ×2 (07:19→19:46)
[2020-09-15] MEDS: pantoprazole 40mg Tablet.DR PO SCH (07:19)
[2020-09-15] MEDS: aspirin 81mg tablet.DR PO SCH (07:19)
[2020-09-15] MEDS: magnesium hydroxide 30ml (MOM) UD suspension PO SCH ×2 (07:19→20:00)
[2020-09-15] MEDS: nicotine 21mg patch - 24 hr TD SCH (07:19)
[2020-09-15] MEDS: lactobacillus rhamnosus 10,000 MMU CELLS/CAPSULE PO SCH ×2 (07:19→19:46)
[2020-09-15] MEDS: furosemide 40mg/4ml inj IV SCH ×3 (07:20→23:50)
[2020-09-15] MEDS: piperacillin/tazo 3.375gm/50ml 50 ML IV SCH ×3 (07:20→23:50)
[2020-09-15] MEDS: K and/or MAG REPLACEMENT MC SCH ×2 (07:20→18:39)
[2020-09-15 07:25] VITALS: BP 122/64
[2020-09-15 11:40] VITALS: BP 117/68
[2020-09-15] MEDS: JUVEN Smoothie Arginine/Glut./Ca2+Bmb (Juven 19.3pkt) 240ml cup PO SCH ×2 (12:30→17:30)
[2020-09-15] MEDS: HYDROcodone/acetaminophen 5mg/325mg tablet PO PRN ×2 (16:05→23:50)
--- NOTE | 2020-09-15 18:08 | NUR ---
Problems reprioritized. Patient report given, questions answered & plan of care reviewed with WILSON PONCE.
[2020-09-15 19:39] VITALS: BP 125/71
[2020-09-15] MEDS: enoxaparin 40mg/0.4ml syringe SUBCUT SCH (20:00)
[2020-09-15] MEDS: buprenorphine/naloxone 2-0.5mg sublingual tablet SL SCH (20:45)
[2020-09-16 00:33] VITALS: BP 102/75
[2020-09-16] MEDS ORDERED: normal saline 1000ml 1,000 ML IV SCH (03:50)
--- NOTE | 2020-09-16 06:15 | NUR ---
Patient in room RITO 348. I have received report from Kevin RACHEL and had the opportunity to ask questions and assume patient care.
--- NOTE | 2020-09-16 06:40 | NUR ---
Problems reprioritized. Patient report given, questions answered & plan of care reviewed with AMY. Addendum: 09/16/20 at 0641 by Henry Donald RN Amended: Links added.
[2020-09-16 07:00] VITALS: BP 112/76
--- NOTE | 2020-09-16 07:13 | NUR ---
Patient in room RITO 348. I have received report from WILSON Brown and had the opportunity to ask questions and assume patient care.
[2020-09-16] MEDS: pantoprazole 40mg Tablet.DR PO SCH (07:56)
[2020-09-16] MEDS: docusate sod 100mg capsule PO SCH (07:56)
[2020-09-16] MEDS: aspirin 81mg tablet.DR PO SCH (07:57)
[2020-09-16] MEDS: lactobacillus rhamnosus 10,000 MMU CELLS/CAPSULE PO SCH (07:57)
[2020-09-16] MEDS: furosemide 40mg/4ml inj IV SCH (07:57)
[2020-09-16] MEDS: magnesium hydroxide 30ml (MOM) UD suspension PO SCH (07:57)
[2020-09-16] MEDS: nicotine 21mg patch - 24 hr TD SCH (07:58)
[2020-09-16] MEDS: piperacillin/tazo 3.375gm/50ml 50 ML IV SCH (07:58)
[2020-09-16] MEDS: K and/or MAG REPLACEMENT MC SCH (08:00)
[2020-09-16] MEDS: buprenorphine/naloxone 2-0.5mg sublingual tablet SL SCH ×2 (08:48→14:13)
--- NOTE | 2020-09-16 09:59 | NUR ---
Nhan ch missed at 0720 09/14. Was not given by day/NOC nurse.
[2020-09-16 11:00] VITALS: BP 116/80
[2020-09-16 11:30] VITALS: BP 116/80
[2020-09-16] MEDS: HYDROcodone/acetaminophen 5mg/325mg tablet PO PRN (11:49)
--- NOTE | 2020-09-16 13:06 | NUR ---
CALLED DR ROTEGA AND LEFT A MESSAGE. STATING PT HAS WOUND VACS IN THE ROOM AND READY TO DC.
[2020-09-16] MEDS: JUVEN Smoothie Arginine/Glut./Ca2+Bmb (Juven 19.3pkt) 240ml cup PO SCH (13:19)
--- NOTE | 2020-09-16 14:19 | NUR ---
Buprenorphine-naloxone administered late due to awaiting pharmacy delivery.
--- NOTE | 2020-09-16 14:24 | NUR ---
Called [facility] to arrange Pt's continuos Zosyn after DC. Spoke to Kadeem at [facility] and he will have his Meds ready to go within an hr.
--- NOTE | 2020-09-16 15:30 | NUR ---
Pt DC to home with spouse. Pt is A & O x4 no apparent distress. Pt verbalizes understanding of all DC orders and is able to teach back wound vac care and trouble shooting. Pt and spouse teaching back S&S of infection, bleeding and what to do in case it happens. Pt given education on all dx and he is open on quitting smoking. Pt given extra supplies, also explain the importance of following up with Dr Chun and ray for the IV infusions. [facility] is aware and are ready for him to come in and get started on IV meds. Pt got norco and was called in by dr Jensen's office.
--- NOTE | 2020-09-17 13:54 | NUR ---
CASE MANAGEMENT DISCHARGE FOLLOW UP: Spoke with pt via telephone. Reports that he is doing alright, having a lot of pain, just took a [place] which he states is helping with pain management, states that the home health nurse did just leave after doing dressing changes which is why he is in a lot of pain; denies CP, SOB/dyspnea, fever, s/sx of worsening infection. Verbalizes understanding of s/sx requiring further evaluation/emergent assistance. States went to infusion clinic and got IV abx, states next infusion set for this afternoon. Verbalizes understanding of medications. Verbalizes compliance with MD discharge instructions. Verbalizes understanding of the importance in making/keeping follow-up appointments, states will call Dr Chun's office after this call. Pt wants to know if there is anything topically he can put on wound, advised that he will need to discuss this with Dr Chun. Pt states that he will advocate for himself to make sure that experienced wound care nurses do his wound care, verbally supported pt's determination to care for self. Pt states no further questions/concerns at this time.
== END 2020-09-16 15:21 | disposition home health service (06) | DRG 711 ==
LOC: ER 08:50 → ED HOLD 11:17 → SUR 3N 12:15 → PACU 09-08 14:15 → CICU 2S 09-08 19:18 → SUR 3N 09-11 22:25
PROVIDERS: ADMIT Internal Medicine; ATTEND Internal Medicine
PROC: 04QL0ZZ Repair Left Femoral Artery, Open Approach (ICD-10-PCS; 2020-09-08)
PROC: 0KU Muscles, Supplement (ICD-10-PCS; 2020-09-08)
PROC: 30233N1 Transfusion of Nonautologous Red Blood Cells into Peripheral Vein, Percutaneous Approach (ICD-10-PCS; 2020-09-08)
PROC: 041J0JQ Bypass Left External Iliac Artery to Lower Extremity Artery with Synthetic Substitute, Open Approach (ICD-10-PCS; principal; 2020-09-08 14:15)
PROC: 02HV33Z Insertion of Infusion Device into Superior Vena Cava, Percutaneous Approach (ICD-10-PCS; 2020-09-15)
PROC: B548ZZA Ultrasonography of Superior Vena Cava, Guidance (ICD-10-PCS; 2020-09-15)
DX: T81.49XA Infection following a procedure, other surgical site, initial encounter (principal); L03.116 Cellulitis of left lower limb; F10.20 Alcohol dependence, uncomplicated; F12.90 Cannabis use, unspecified, uncomplicated; F17.210 Nicotine dependence, cigarettes, uncomplicated; F41.0 Panic disorder [episodic paroxysmal anxiety]; G89.4 Chronic pain syndrome; I73.9 Peripheral vascular disease, unspecified; Y83.8 Other surgical procedures as the cause of abnormal reaction of the patient, or of later complication, without mention of misadventure at the time of the procedure; I99.8 Other disorder of circulatory system; J45.909 Unspecified asthma, uncomplicated; Z79.01 Long term (current) use of anticoagulants; Z86.718 Personal history of other venous thrombosis and embolism; Z88.1 Allergy status to other antibiotic agents; Y92.89 Other specified places as the place of occurrence of the external cause
CPT/HCPCS: 36415; 36430; 36573; 36600; 71045; 76010; 76937; 80048; 80053; 80202; 81003; 82272; 82803; 82948; 83090; 83520; 83540; 83550; 83605; 83735; 83880; 83891; 84100; 84132; 84145; 85018; 85025; 85240; 85300; 85301; 85303; 85598; 85610; 85730; 86146; 86147; 86703; 86885; 86900; 86901; 86920; 87040; 87070; 87075; 87077; 87081; 87186; 87635; 93005; 93971; 94002; 94003; 94640; 94760; 96365; 97110; 97116; 97161; 97530; 97535; 99285; A4618; A6223; A6258; A6446; A6455; A6550; A7000; C1758; C1768; C9113; G0378; J0692; J1170; J1644; J1650; J1940; J2001; J2250; J2270; J2543; J3010; J3370; J3480; J3490; J7030; J7040; J7060; J7120; P9016; P9045; Q9967

== ENCOUNTER → 2020-09-19 | Outpatient (CLI) | payer MEDICAID ==
[~2020-09-19] MED LIST changes: -ASPI-1071 PO; +ASPI-611 PO; +BUPR1FIL5 SL; +FURO40TA4 PO; +LIDOcaine 4% (40 mg/ml) topical solution 50ml ONE; -NICO-687 TD
== END | disposition home or self-care (01) ==
LOC: WOUND CARE 13:11
PROVIDERS: ATTEND Nurse Practitioner
DX: T81.89XD Other complications of procedures, not elsewhere classified, subsequent encounter (principal); M79.A22 Nontraumatic compartment syndrome of left lower extremity; G40.89 Other seizures; J45.909 Unspecified asthma, uncomplicated; F17.200 Nicotine dependence, unspecified, uncomplicated; Z79.82 Long term (current) use of aspirin; Z79.899 Other long term (current) drug therapy; Z86.69 Personal history of other diseases of the nervous system and sense organs; Z79.01 Long term (current) use of anticoagulants; X58.XXXD Exposure to other specified factors, subsequent encounter; Y83.8 Other surgical procedures as the cause of abnormal reaction of the patient, or of later complication, without mention of misadventure at the time of the procedure
CPT/HCPCS: 15271; 15272; Q4196

== ENCOUNTER 2024-05-21 19:14 | Emergency (ER) | payer MEDICAID ==
[~2024-05-21] VITALS: Ht 170.2 cm; Wt 83.7 kg
[~2024-05-21 19:14] MED LIST changes: +ALBU8.5H17 INH; -ALBU8.5H8 INH; -LIDOcaine 4% (40 mg/ml) topical solution 50ml ONE
[2024-05-21 19:44] VITALS: BP 164/96; PULSE 89; RESP 18; TEMP 98.2; O2SAT 97
[2024-05-21] MEDS ORDERED: ALBU8HFA INH (22:47)
== END 2024-05-21 20:18 | disposition left against medical advice (07) ==
LOC: ER 19:15
DX: R05.9 Cough, unspecified (principal); J00 Acute nasopharyngitis [common cold]; R09.89 Other specified symptoms and signs involving the circulatory and respiratory systems; Z53.21 Procedure and treatment not carried out due to patient leaving prior to being seen by health care provider

== ENCOUNTER 2024-05-21 21:50 | Emergency (ER) | payer MEDICAID ==
[~2024-05-21] VITALS: Ht 172.7 cm; Wt 83.6 kg
[2024-05-21 21:51] VITALS: TEMP 98.2
[2024-05-21 22:15] LABS: BASOPHILS % (AUTO) 0.2 % (0-1); EOSINOPHILS # (AUTO) 0.1 X10'3 (0-0.9); EOSINOPHILS % (AUTO) 0.8 % (0-6); HEMATOCRIT 39.7 % (42.0-52.0); HEMOGLOBIN 13.6 g/dl (14.0-17.9); LYMPHOCYTES # (AUTO) 4.6 X10'3 (1.1-4.8); LYMPHOCYTES % (AUTO) 47.3 % (21-51); MEAN CORPUSCULAR HEMOGLOBIN 30.7 PG (27.0-31.0); MEAN CORPUSCULAR HGB CONC 34.3 g/dL (33.0-36.5); MEAN CORPUSCULAR VOLUME 89.6 FL (78-98); MEAN PLATELET VOLUME 6.7 FL (7.4-10.4); MONOCYTES # (AUTO) 0.6 X10'3 (0-0.9); MONOCYTES % (AUTO) 6.3 % (2-12); NEUTROPHILS # (AUTO) 4.5 X10'3 (1.8-7.7); NEUTROPHILS % (AUTO) 45.4 % (42-75); PLATELET COUNT 257 X10'3 (140-440); RED BLOOD COUNT 4.43 X10'6 (4.70-6.10); RED CELL DISTRIBUTION WIDTH 14.6 % (11.5-14.5); WHITE BLOOD COUNT 9.8 X10'3 (4.5-11.0)
[2024-05-21 22:29] LABS: ALANINE AMINOTRANSFERASE 39 U/L (12-78); ALBUMIN 3.4 G/DL (3.4-5.0); ALKALINE PHOSPHATASE 60 IU/L (46-116); ANION GAP 7 (8-16); ASPARTATE AMINO TRANSFERASE 36 U/L (10-37); BILIRUBIN,TOTAL 0.3 MG/DL (0.1-1.0); BLOOD UREA NITROGEN 3 MG/DL (7-18); CHLORIDE 93 MMOL/L (99-107); CREATININE 0.75 MG/DL (0.60-1.10); GLUCOSE 140 MG/DL (70-104); POTASSIUM 3.1 MMOL/L (3.5-5.1); SODIUM 127 MMOL/L (135-145); TOTAL CARBON DIOXIDE 26.9 MMOL/L (24-32); TOTAL PROTEIN 6.7 G/DL (6.4-8.2); eCRCL 118 ML/MIN; eGFR > 90 ML/MIN
[2024-05-21 22:37] LABS: PRO BRAIN NATRIURETIC PEPTIDE < 30 PG/ML (0-125)
[2024-05-21] MEDS ORDERED: ALBU8HFA INH (22:47)
[2024-05-22 00:22] VITALS: BP 129/78; PULSE 98; RESP 16; O2SAT 98
== END 2024-05-22 00:24 | disposition home or self-care (01) ==
LOC: ER 21:51
DX: R06.02 Shortness of breath (principal); J45.909 Unspecified asthma, uncomplicated; Z79.899 Other long term (current) drug therapy; Z79.82 Long term (current) use of aspirin; Z86.718 Personal history of other venous thrombosis and embolism
CPT/HCPCS: 36415; 71045; 80053; 83880; 84484; 85025; 93005; 99285